=== PATIENT | male | born 1960 | race Hispanic/Latino ===

== ENCOUNTER 2019-02-09 18:52 | Emergency (ER) | payer SELFPAY ==
[2019-02-09] MEDS ORDERED: LIDOCAINE 2% MPF 5 ML VIAL ONE (19:03)
[2019-02-09] MEDS ORDERED: MORPHINE 4 MG/ML SYR ONE (19:23)
[2019-02-09] MEDS ORDERED: ONDANSETRON 4 MG/2 ML VIAL ONE (19:23)
[2019-02-09] MEDS ORDERED: TETANUS & DIPHTHERIA TOX,ADULT 0.5 ML VIAL ONE (19:23)
--- NOTE | 2019-02-09 20:08 | RAD REPORT ---
EXAM DESCRIPTION: RAD - Hand Right 3 View - 02/09/2019 7:37 pm CLINICAL HISTORY: Right hand pain status post injury FINDINGS: Comminuted fracture involves the third terminal tuft. No dislocation Laceration involves the soft tissues fourth terminal tuft
--- NOTE | 2019-02-09 21:20 | EDPHYS ---
Physician Documentation [facility] Name: Demetris Wong Age: 58 yrs Sex: Male : 1960 Arrival Date: 02/09/2019 Time: 18:57 Bed 20 Private MD: ED Physician Jcarlos Mendoza HPI: 02/09 19:08 This 58 yrs old Male presents to ER via Ambulatory with complaints of rn Laceration. 19:08 The patient or guardian reports injury, a laceration. The complaints affect the right rn 3rd/4th digits. Onset: The symptoms/episode began/occurred just prior to arrival. Modifying factors: The symptoms are alleviated by nothing, the symptoms are aggravated by nothing. Severity of symptoms: At their worst the symptoms were mild, in the emergency department the symptoms are unchanged. The patient has not experienced similar symptoms in the past. Reports clearing out grass in lawnmower, as blade was spinning, caught right hand. Mild pain. Unknown last tetanus. . Historical: - Allergies: 18:58 No Known Allergies; bp - Home Meds: 18:58 Unable to obtain [Active]; bp - PMHx: 18:58 Hypertension; bp - Immunization history:: Last tetanus immunization: unknown. - Social history:: Smoking status: Patient/guardian denies using tobacco. - Ebola Screening: : No symptoms or risks identified at this time. - Family history:: not pertinent. - Hospitalizations: : No recent hospitalization is reported. ROS: 19:08 Constitutional: Negative for fever, chills, and weight loss, MS/Extremity: + right rn 3rd/4th digits with laceration Exam: 19:08 Constitutional: This is a well developed, well nourished patient who is awake, alert, rn and in no acute distress. MS/ Extremity: Pulses equal, no cyanosis. Neurovascular intact. Full, normal range of motion. + right 3rd/4th digits with distal lacerations. 4th digit with 1.5 cm superficial laceration transverse distal phalanx, does not involve nail. 3rd digit with multiple longitudinal and transverse lacerations across distal phalanx, does involve nail bed, no bone expose on initial examination. Vital Signs: 18:58 Pulse 67; Resp 24; Temp 97.5; Pulse Ox 98% ; Weight 83.91 kg; bp 19:45 BP 168 / 89; Pulse 56; Resp 15 S; Pulse Ox 95% on R/A; cc3 20:15 BP 159 / 93; Pulse 52; Resp 15 S; Pulse Ox 97% on R/A; cc3 21:30 BP 170 / 96; Pulse 53; Resp 16 S; Pulse Ox 97% on R/A; cc3 22:00 BP 161 / 88; Pulse 56; Resp 15 S; Pulse Ox 97% on R/A; Pain 1/10; cc3 Procedures: 19:49 Nerve block: (digital) of palmar aspect of proximal phalanx of right ring finger and rn palmar aspect of proximal phalanx of right middle finger Medication: Lidocaine 2% without epinephrine, Amount: 5 mls were injected, Effect: the patient's symptoms are improved, Set up for procedure. Performed by Jcarlos Mendoza MD Patient tolerated well. Laceration: 21:14 Wound Repair of 2cm ( 0.8in ) subcutaneous laceration to palmar aspect of proximal rn phalanx of right ring finger. Distal neuro/vascular/tendon intact. Anesthesia: Digital block administered with 2 mls of 2% lidocaine. Wound prep: Extensive cleansing by me, Wound irrigation by me, Particulate matter removal of dirt of grass, Wound debrided moderately, Wound explored. Skin closed with 7 6-0 Prolene using interrupted sutures and sterile technique. Dressed with Kerlix. Patient tolerated well. 21:14 Wound Repair of 5cm ( 2.0in ) avulsed laceration to palmar aspect of proximal phalanx rn of right middle finger. Irregularly shaped.. Skin/tissue flap noted.. involving nail bed. Distal neuro/vascular/tendon intact. Anesthesia: Digital block administered with 3 mls of 2% lidocaine. Wound prep: Extensive cleansing by me, Wound irrigation by me, Particulate matter removal of dirt of grass by me, Wound margin revised moderately, Wound explored extensively, Copious irrigation. Skin closed with 16 6-0 Prolene using interrupted sutures and sterile technique. Dressed with surgicel. Patient tolerated well. MDM: 19:01 Patient medically screened. rn 19:14 ED course: Offered patient digital blocks while waiting on xrays and further rn examination, patient declines. . 21:14 Differential diagnosis: open fracture. Data reviewed: vital signs, nurses notes, rn radiologic studies, plain films, and as a result, I will discharge patient. Counseling: I had a detailed discussion with the patient and/or guardian regarding: the historical points, exam findings, and any diagnostic results supporting the discharge/admit diagnosis, radiology results, the need for outpatient follow up, to return to the emergency department if symptoms worsen or persist or if there are any questions or concerns that arise at home. Response to treatment: the patient's symptoms have markedly improved after treatment, and as a result, I will discharge patient. ED course: Wound closed after removal of nail, not salvageable, given abx and washed out well. Will dc home with abx and hand f/u. Return precautions given and understood. . 02/09 19:07 Order name: XRAY Hand RIGHT 3 View; Complete Time: 20:51 rn 02/09 19:07 Order name: IV Start; Complete Time: 19:19 rn Administered Medications: 19:25 Drug: Tetanus-Diphtheria Toxoid Adult 0.5 ml {Waterproof Material Folder: [employer]. Exp: cc3 09/30/2020. Lot #: [id number]. } Route: IM; Site: left deltoid; 19:30 Follow up: Response: No adverse reaction cc3 19:26 Drug: morphine 4 mg {Note: RASS 0.} Route: IVP; Site: left antecubital; cc3 20:00 Follow up: Response: No adverse reaction; Pain is decreased; RASS: Alert and Calm (0) cc3 19:30 Drug: Zofran 4 mg Route: IVP; Site: left antecubital; cc3 20:00 Follow up: Response: No adverse reaction; Nausea is decreased cc3 20:00 Drug: Lidocaine (1 %) 1 vials {Note: administered by Dr. Mendoza.} Volume: 5 ml; Route: cc3 Infiltration; Site: affected area; 20:10 Follow up: Response: No adverse reaction cc3 21:20 Drug: [place] 10 mg-325 mg 1 tabs {Note: RASS 0.} Route: PO; cc3 22:00 Follow up: Response: No adverse reaction; Pain is decreased; RASS: Alert and Calm (0) cc3 21:25 Drug: Ancef 2 grams Route: IVPB; Infused Over: 30 mins; Site: left antecubital; cc3 22:08 Follow up: Response: No adverse reaction; IV Status: Completed infusion; IV Intake: cc3 100ml Disposition: 02/09/19 21:19 Discharged to Home. Impression: Displaced fracture of distal phalanx of right middle finger, Superficial laceration of right distal ring finger. - Condition is Stable. - Discharge Instructions: Finger Fracture, Laceration Care, Adult, Nail Bed Laceration. - Prescriptions for Augmentin 875- 125 mg Oral Tablet - take 1 tablet by ORAL route every 12 hours for 10 days; 20 tablet. Tylenol- Codeine #3 300-30 mg Oral Tablet - take 2 tablets by ORAL route every 6-8 hours As needed; 20 tablet. Doxycycline Monohydrate 100 mg Oral Tablet - take 1 tablet by ORAL route every 12 hours for 10 days; 20 tablet. - Medication Reconciliation Form, Thank You Letter, Antibiotic Education, Prescription Opioid Use form. - Follow up: Melvin Keith MD; When: 2 - 3 days; Reason: Recheck today's complaints, Re-evaluation by your physician. - Problem is new. - Symptoms have improved. - Notes: Sutures to be removed in 14 days Signatures: Dispatcher [employer] EDMS Jcarlos Mendoza MD MD rn Peltier, Brian, RN RN bp Cordel, Charlene cc3 Corrections: (The following items were deleted from the chart) 22:08 21:19 02/09/2019 21:19 Discharged to Home. Impression: Displaced fracture of distal cc3 phalanx of right middle finger; Superficial laceration of right distal ring finger. Condition is Stable. Forms are Medication Reconciliation Form, Thank You Letter, Antibiotic Education, Prescription Opioid Use. Follow up: Melvin Keith; When: 2 - 3 days; Reason: Recheck today's complaints, Re-evaluation by your physician. Problem is new. Symptoms have improved. rn
--- NOTE | 2019-02-09 21:20 | ER ---
Nurse's Notes [facility] Name: Demetrsi Wong Age: 58 yrs Sex: Male : 1960 Arrival Date: 02/09/2019 Time: 18:57 Bed 20 Private MD: Diagnosis: Displaced fracture of distal phalanx of right middle finger;Superficial laceration of right distal ring finger Presentation: 02/09 18:57 Presenting complaint: Patient states: PARTIAL AMPUTATION TO R 3RD/4TH FINGERS BY ROTARY bp BLADE. Transition of care: patient was not received from another setting of care. Complicating Factors: Glass or an other foreign body is present in the wound. Onset of symptoms was February 09, 2019 at 18:30. Risk Assessment: Do you want to hurt yourself or someone else? Patient reports no desire to harm self or others. Initial Sepsis Screen: Does the patient meet any 2 criteria? No. Patient's initial sepsis screen is negative. Does the patient have a suspected source of infection? No. Patient's initial sepsis screen is negative. Care prior to arrival: None. 18:57 Method Of Arrival: Ambulatory bp 18:57 Acuity: GISEL 3 bp Triage Assessment: 19:29 General: Appears in no apparent distress. uncomfortable, Behavior is calm, cooperative, cc3 appropriate for age. Pain: Complains of pain in palmar aspect of proximal phalanx of right middle finger and palmar aspect of proximal phalanx of right ring finger. Injury Description: Laceration sustained to palmar aspect of proximal phalanx of right ring finger and palmar aspect of proximal phalanx of right middle finger is clean, superficial, 2.6 to 7.5 cm long, bleeding moderately. Historical: - Allergies: 18:58 No Known Allergies; bp - Home Meds: 18:58 Unable to obtain [Active]; bp - PMHx: 18:58 Hypertension; bp - Immunization history:: Last tetanus immunization: unknown. - Social history:: Smoking status: Patient/guardian denies using tobacco. - Ebola Screening: : No symptoms or risks identified at this time. - Family history:: not pertinent. - Hospitalizations: : No recent hospitalization is reported. Screenin:29 Abuse screen: Denies threats or abuse. Denies injuries from another. Nutritional cc3 screening: No deficits noted. Tuberculosis screening: No symptoms or risk factors identified. Fall Risk Ambulatory Aid- None/Bed Rest/Nurse Assist (0 pts). Gait- Normal/Bed Rest/Wheelchair (0 pts) Mental Status- Oriented to own ability (0 pts). Assessment: 19:29 General: Appears in no apparent distress. uncomfortable, Behavior is calm, cooperative, cc3 appropriate for age. Pain: Complains of pain in palmar aspect of proximal phalanx of right middle finger and palmar aspect of proximal phalanx of right ring finger. Neuro: Level of Consciousness is awake, alert, obeys commands, Oriented to person, place, time, situation, Appropriate for age. Cardiovascular: Denies chest pain, Capillary refill < 3 seconds Patient's skin is warm and dry. Respiratory: Airway is patent Respiratory effort is even, unlabored, Respiratory pattern is regular, symmetrical. GI: Abdomen is round non-distended. : No signs and/or symptoms were reported regarding the genitourinary system. EENT: No signs and/or symptoms were reported regarding the EENT system. Derm: Skin is intact, is healthy with good turgor, Skin is pink, warm \T\ dry. normal, Wound noted palmar aspect of proximal phalanx of right ring finger and palmar aspect of proximal phalanx of right middle finger Wound is laceration. Musculoskeletal: Circulation, motion, and sensation intact. Range of motion: limited in palmar aspect of proximal phalanx of right middle finger and palmar aspect of proximal phalanx of right ring finger. Injury Description: Laceration sustained to palmar aspect of proximal phalanx of right ring finger and palmar aspect of proximal phalanx of right middle finger is clean, superficial, 2.6 to 7.5 cm long, bleeding moderately. 20:10 Reassessment: Patient appears in no apparent distress at this time. Patient and/or cc3 family updated on plan of care and expected duration. Pain level reassessed. Patient is alert, oriented x 3, equal unlabored respirations, skin warm/dry/pink. Dr. Mendoza did wound suturing aseptically. Patient states feeling better. Patient states symptoms have improved. 21:15 Reassessment: Patient appears in no apparent distress at this time. Patient and/or cc3 family updated on plan of care and expected duration. Pain level reassessed. Patient is alert, oriented x 3, equal unlabored respirations, skin warm/dry/pink. 22:08 Reassessment: Patient appears in no apparent distress at this time. Patient and/or cc3 family updated on plan of care and expected duration. Pain level reassessed. Patient is alert, oriented x 3, equal unlabored respirations, skin warm/dry/pink. Wound cleaning and dressing done by in flight technician Kartik. IV antibiotic completed, Dr. Mendoza discharged the patient home with prescriptions given. IV cannula removed and patient left ER vitally stable and ambulatory by himself. No valuables left in the patient's room. Patient denies pain at this time. Patient states feeling better. Patient states symptoms have improved. Vital Signs: 18:58 Pulse 67; Resp 24; Temp 97.5; Pulse Ox 98% ; Weight 83.91 kg; bp 19:45 BP 168 / 89; Pulse 56; Resp 15 S; Pulse Ox 95% on R/A; cc3 20:15 BP 159 / 93; Pulse 52; Resp 15 S; Pulse Ox 97% on R/A; cc3 21:30 BP 170 / 96; Pulse 53; Resp 16 S; Pulse Ox 97% on R/A; cc3 22:00 BP 161 / 88; Pulse 56; Resp 15 S; Pulse Ox 97% on R/A; Pain 1/10; cc3 ED Course: 18:57 Patient arrived in ED. mr 18:58 Triage completed. bp 18:58 Arm band placed on left wrist. bp 18:59 Marce Lainez, BRIANNA is Primary Nurse. ch 19:01 Jcarlos Mendoza MD is Attending Physician. rn 19:18 Inserted saline lock: 20 gauge in left antecubital area, using aseptic technique. jd2 19:29 Jessica Mccoy is Primary Nurse. cc3 19:29 Patient has correct armband on for positive identification. Placed in gown. Bed in low cc3 position. Call light in reach. Side rails up X 1. Pulse ox on. NIBP on. 19:39 XRAY Hand RIGHT 3 View In Process Unspecified. EDMS 20:10 Assist provider with laceration repair on palmar aspect of proximal phalanx of right cc3 middle finger and palmar aspect of proximal phalanx of right ring finger that was between 7.6 to 12.5 cm using sutures. Set up tray. Performed by Jcarlos Mendoza MD Dressed with 4X4s, Patient tolerated well. 21:17 Melvin Keith MD is Referral Physician. rn 22:08 IV discontinued, intact, bleeding controlled, No redness/swelling at site. Pressure cc3 dressing applied. Administered Medications: 19:25 Drug: Tetanus-Diphtheria Toxoid Adult 0.5 ml {Supervisor Heavy Equipment: [employer]. Exp: cc3 09/30/2020. Lot #: [id number]. } Route: IM; Site: left deltoid; 19:30 Follow up: Response: No adverse reaction cc3 19:26 Drug: morphine 4 mg {Note: RASS 0.} Route: IVP; Site: left antecubital; cc3 20:00 Follow up: Response: No adverse reaction; Pain is decreased; RASS: Alert and Calm (0) cc3 19:30 Drug: Zofran 4 mg Route: IVP; Site: left antecubital; cc3 20:00 Follow up: Response: No adverse reaction; Nausea is decreased cc3 20:00 Drug: Lidocaine (1 %) 1 vials {Note: administered by Dr. Mendoza.} Volume: 5 ml; Route: cc3 Infiltration; Site: affected area; 20:10 Follow up: Response: No adverse reaction cc3 21:20 Drug: [place] 10 mg-325 mg 1 tabs {Note: RASS 0.} Route: PO; cc3 22:00 Follow up: Response: No adverse reaction; Pain is decreased; RASS: Alert and Calm (0) cc3 21:25 Drug: Ancef 2 grams Route: IVPB; Infused Over: 30 mins; Site: left antecubital; cc3 22:08 Follow up: Response: No adverse reaction; IV Status: Completed infusion; IV Intake: cc3 100ml Intake: 22:08 IV: 100ml; Total: 100ml. cc3 Outcome: 21:19 Discharge ordered by . rn 22:08 Patient left the ED. cc3 22:08 Discharged to home ambulatory. cc3 22:08 Condition: stable 22:08 Discharge instructions given to patient, Instructed on discharge instructions, follow up and referral plans. medication usage, wound care, Demonstrated understanding of instructions, follow-up care, medications, wound care, Prescriptions given X 3. Signatures: Dispatcher [employer] EDMS Marce Lainez, RN RN Brii WeldonJcarlos alvarez MD MD rn Donley, Jonika jd2 Peltier, Brian, Jessica Koehler RN cc3 Corrections: (The following items were deleted from the chart) 02/10 01:15 02/09 22:10 Reassessment: Patient appears in no apparent distress at this time. Patient cc3 and/or family updated on plan of care and expected duration. Pain level reassessed. Patient is alert, oriented x 3, equal unlabored respirations, skin warm/dry/pink. IV antibiotic completed, Dr. Mendoza discharged the patient home with prescriptions given. IV cannula removed and patient left ER vitally stable and ambulatory by himself. No valuables left in the patient's room. Patient denies pain at this time. Patient states feeling better. Patient states symptoms have improved. cc3
[2019-02-09] MEDS ORDERED: CEFAZOLIN SODIUM 1 GM/VIAL ONE (21:24)
[2019-02-09] MEDS ORDERED: NA CHLORIDE 0.9% 100 ML IV ONE (21:25)
[2019-02-09] MEDS ORDERED: HYDROCODONE/APAP 10/325 TAB ONE (21:25)
[2019-02-09 23:09] VITALS: TEMP 97.5
[2019-02-09 23:11] VITALS: O2SAT 97
[2019-02-09 23:13] VITALS: BP 170/96
== END 2019-02-09 22:08 | disposition home or self-care (01) ==
LOC: ER 18:52
PROC: 0JQJ0ZZ Repair Right Hand Subcutaneous Tissue and Fascia, Open Approach (ICD-10-PCS; principal; 2019-02-09)
DX: S61.214A Laceration without foreign body of right ring finger without damage to nail, initial encounter (principal); S62.632A Displaced fracture of distal phalanx of right middle finger, initial encounter for closed fracture; W31.89XA Contact with other specified machinery, initial encounter; Y93.89 Activity, other specified; Y92.9 Unspecified place or not applicable; Z23 Encounter for immunization; I10 Essential (primary) hypertension
CPT/HCPCS: 64450; 90471; 90714; 96365; 96375; 99284; J0690; J2405

== ENCOUNTER 2021-11-09 20:42 | Observation (INO) | payer SELFPAY ==
[2021-11-09 21:42] LABS: Absolute Lymphocytes (CBC) 2.6 K/uL (0.7-4.9); Hematocrit 44.2 % (39.6-49.0); Lymphocytes % 34.9 % (15.3-44.8); MPV 8.6 fL (7.6-11.3); RBC Red Blood Cell Count 5.11 M/uL (4.33-5.43)
[2021-11-09] MEDS ORDERED: NA CHLORIDE 0.9% 1,000 ML ONE (21:44)
[2021-11-09] MEDS ORDERED: ONDANSETRON 4 MG/2 ML VIAL ONE (21:44)
[2021-11-09] MEDS ORDERED: MORPHINE 4 MG/ML SYR ONE ×2 (21:44→23:03)
[2021-11-09 21:45] LABS: Protime INR 1.06
--- NOTE | 2021-11-09 21:56 | RAD REPORT ---
EXAM DESCRIPTION: RAD - Chest Single View - 11/09/2021 9:30 pm CLINICAL HISTORY: CHEST PAIN COMPARISON: CHEST SINGLE VIEW dated 01/26/2010; ABDOMEN ACUTE SERIES dated 06/21/2004; CHEST SINGLE VIEW dated 06/27/2003 FINDINGS: Lines: None. Lungs: No evidence of edema or pneumonia. Pleural: No significant pleural effusions or pneumothorax. Cardiac: The heart size is within normal limits. Bones: No acute fractures. Other: IMPRESSION: No acute cardiopulmonary disease.
--- NOTE | 2021-11-09 22:02 | RAD REPORT ---
EXAM DESCRIPTION: CT - Head Brain Wo Cont - 11/09/2021 9:50 pm CLINICAL HISTORY: Headache COMPARISON: No comparisons TECHNIQUE: All CT scans are performed using dose optimization technique as appropriate and may inclu de automated exposure control or mA/KV adjustment according to patient size. FINDINGS: No intracranial hemorrhage, hydrocephalus or extra-axial fluid collection.No areas of brai n edema or evidence of midline shift. The paranasal sinuses and mastoids are clear. The calvarium is intact. IMPRESSION: No acute intracranial abnormality.
[2021-11-09 22:08] LABS: Albumin 3.8 g/dL (3.4-5.0); Bilirubin Direct 0.1 mg/dL (0-0.2); Bilirubin Total 0.5 mg/dL (0.2-1.0); Magnesium 2.3 mg/dL (1.8-2.4); Potassium 3.8 mmol/L (3.5-5.1); Protein, Total 7.6 g/dL (6.4-8.2); Troponin High Sensitivity 8.5 pg/mL (<58.9)
--- NOTE | 2021-11-09 22:49 | EDPHYS ---
Physician Documentation [facility] Name: Demetris Wong Age: 61 yrs Sex: Male : 1960 Arrival Date: 11/09/2021 Time: 20:43 Bed 20 Private MD: ED Physician Landry Clark HPI: 11/09 20:53 This 61 yrs old Male presents to ER via EMS with complaints of Chest Pain. pm1 20:53 The patient or guardian reports chest pain that is located primarily in the anterior pm1 aspect of left upper chest and left breast. Onset: this morning. The pain does not radiate. Associated signs and symptoms: Pertinent positives: headache, nausea, shortness of breath, Pertinent negatives: abdominal pain, cough, diaphoresis, dizziness, vomiting. The chest pain is described as sharp. Duration: The patient or guardian reports a single episode, that is still ongoing. Modifying factors: The symptoms are alleviated by nothing. the symptoms are aggravated by nothing. Severity of pain: in the emergency department the pain is actually worse. EMS care prior to arrival includes: aspirin, saline lock. The patient has not experienced similar symptoms in the past. Historical: - Allergies: 20:55 No Known Allergies; ll3 - PMHx: 20:55 Hypertension; ll3 - Immunization history:: Client reports having NOT received the Covid vaccine. - Social history:: Smoking status: Patient denies any tobacco usage or history of. ROS: 20:53 Constitutional: Negative for fever, chills, and weight loss, Respiratory: Negative for pm1 shortness of breath, cough, wheezing, and pleuritic chest pain, Abdomen/GI: Negative for abdominal pain, nausea, vomiting, diarrhea, and constipation, Back: Negative for injury and pain, MS/Extremity: Negative for injury and deformity, Skin: Negative for injury, rash, and discoloration. 20:53 Neuro: Negative for headache, weakness, numbness, tingling, and seizure. 20:53 Cardiovascular: Positive for chest pain, of the left breast and anterior aspect of left upper chest, Negative for edema, palpitations. 20:53 All other systems are negative. Exam: 20:53 Constitutional: This is a well developed, well nourished patient who is awake, alert, pm1 and in no acute distress. Head/Face: Normocephalic, atraumatic. 20:53 Back: No spinal tenderness. No costovertebral tenderness. Full range of motion. Skin: Warm, dry with normal turgor. Normal color with no rashes, no lesions, and no evidence of cellulitis. MS/ Extremity: Pulses equal, no cyanosis. Neurovascular intact. Full, normal range of motion. 20:53 Chest/axilla: Inspection: normal, Palpation: tenderness, is not appreciated. 20:53 Cardiovascular: Rate: normal, Rhythm: regular, Pulses: no pulse deficits are appreciated, Heart sounds: normal, normal S1and S2, Edema: is not appreciated. 20:53 Respiratory: Exam negative for acute changes, respiratory distress, shortness of breath, Breath sounds: are clear throughout. 20:53 Abdomen/GI: Inspection: abdomen appears normal, Palpation: abdomen is soft and non-tender, in all quadrants. 20:53 Neuro: Exam negative for acute changes, Orientation: is normal, Mentation: is normal, Motor: is normal, moves all fours. Vital Signs: 20:49 BP 181 / 106; Pulse 70; Resp 17; Temp 98.0(TE); Pulse Ox 100% on R/A; Weight 77.11 kg ll3 (R); Height 5 ft. 7 in. (170.18 cm) (R); Pain 8/10; 22:26 BP 192 / 101; Pulse 66; Resp 22; Pulse Ox 98% on R/A; ll3 23:15 BP 168 / 96; Pulse 61; Resp 12; Pulse Ox 97% on R/A; ll3 11/10 01:16 BP 161 / 97; Pulse 58; Resp 18; Pulse Ox 99% on R/A; ll3 11/09 20:49 Body Mass Index 26.63 (77.11 kg, 170.18 cm) ll3 MDM: 11/09 20:43 Patient medically screened. [facility] 22:44 Data reviewed: vital signs. Data interpreted: Pulse oximetry: on room air is 98 %. pm1 Interpretation:. 22:48 Counseling: I had a detailed discussion with the patient and/or guardian regarding: the pm1 historical points, exam findings, and any diagnostic results supporting the discharge/admit diagnosis, lab results, radiology results, the need for further work-up and treatment in the hospital. 11/09 20:53 Order name: Basic Metabolic Panel; Complete Time: 22:21 pm11/09 20:53 Order name: CBC with Diff; Complete Time: 21:47 pm1 11/09 20:53 Order name: LFT's; Complete Time: 22:21 pm11/09 20:53 Order name: Magnesium; Complete Time: 22:21 pm11/09 20:53 Order name: NT PRO-BNP; Complete Time: 22:21 pm11/09 20:53 Order name: PT-INR; Complete Time: 21:47 pm11/09 20:53 Order name: Troponin HS; Complete Time: 22:21 pm11/09 20:53 Order name: XRAY Chest (1 view); Complete Time: 22:21 pm11/09 20:53 Order name: CT Head Brain wo Cont; Complete Time: 22:21 pm11/09 22:47 Order name: UDS pm11/09 23:03 Order name: COVID-19 SARS RT PCR (Document "Date of Onset" if Symptomatic) ks11/10 00:56 Order name: SARS-COV-2 RT PCR; Complete Time: 01:40 EDMS 11/09 20:53 Order name: EKG; Complete Time: 20:53 pm11/09 20:53 Order name: Cardiac monitoring; Complete Time: 20:58 pm11/09 20:53 Order name: EKG - Nurse/Tech; Complete Time: 21:28 pm11/09 20:53 Order name: IV Saline Lock; Complete Time: 21:18 pm11/09 20:53 Order name: Labs collected and sent; Complete Time: 21:18 pm11/09 20:53 Order name: O2 Per Protocol; Complete Time: 20:58 pm11/09 20:53 Order name: O2 Sat Monitoring; Complete Time: 20:58 pm1 Administered Medications: 21:40 Drug: Zofran (Ondansetron) 4 mg Route: IVP; Site: right antecubital; ll3 21:44 Drug: morphine 4 mg Route: IVP; Infused Over: 4 mins; Site: right antecubital; ll3 21:47 Not Given (Patient given in route by EMS): Aspirin Chewable Tablet 324 mg PO once; 81 pm1 mg tablets x 4 22:08 Drug: NS 0.9% 1000 ml Route: IV; Rate: 1000 ml; Site: left antecubital; ll3 22:45 CANCELLED (Physician Discretion): Lopressor (metoprolol) 5 mg IVP once; Hold for SBP pm1 <100 or HR <60. 22:46 CANCELLED (Physician Discretion): hydrALAZINE 10 mg IVP once pm1 23:00 Drug: Lisinopril 20 mg Route: PO; ll3 23:07 Drug: Nitrostat (nitroglycerin) 0.4 mg Route: Sublingual; ll3 23:11 Drug: morphine 4 mg Route: IVP; Infused Over: 4 mins; Site: left antecubital; ll3 Disposition Summary: 11/09/21 22:49 Hospitalization Ordered Hospitalization Status: Observation pm1 Provider: Yohannes Mendoza pm1 Location: Telemetry/MedSurg (observation) pm1 Condition: Stable pm1 Problem: new pm1 Symptoms: have improved pm1 Bed/Room Type: Standard 1 Room Assignment: [facility](11/10/21 00:57) Diagnosis - Chest pain, unspecified pm1 Forms: - Medication Reconciliation Form pm1 - SBAR form pm1 Signatures: Dispatcher [employer] EDMS Landry Clark MD MD cha Garcia, Cindy, RN RN Zohaib Baeza NP [employer] TECHNICIAN pm1 Clinton Coelho RN RN ll3 Corrections: (The following items were deleted from the chart) 22:45 22:43 Lopressor (metoprolol) 5 mg IVP once; Hold for SBP <100 or HR <60. ordered. pm1 pm1 22:46 22:45 hydrALAZINE 10 mg IVP once ordered. pm1 pm1 11/10 00:57 11/09 22:49 pm1 cg
--- NOTE | 2021-11-09 22:49 | ER ---
Nurse's Notes [facility] Name: Demetris Wong Age: 61 yrs Sex: Male : 1960 Arrival Date: 11/09/2021 Time: 20:43 Bed 20 Private MD: Diagnosis: Chest pain, unspecified Presentation: 11/09 20:49 Chief complaint: EMS states: Toned out for chest pain, SOB, H/A, and nausea, pt states ll3 it started about 2 hours ago after sweating in the sun all day, "I over did it today, I know I did", pt states he forgot to katie BP meds today. Coronavirus screen: Vaccine status: Patient reports being unvaccinated. Ebola Screen: No symptoms or risks identified at this time. Initial Sepsis Screen: Does the patient meet any 2 criteria? No. Patient's initial sepsis screen is negative. Does the patient have a suspected source of infection? No. Patient's initial sepsis screen is negative. Risk Assessment: Do you want to hurt yourself or someone else? Patient reports no desire to harm self or others. Onset of symptoms was November 09, 2021 at 19:00. Care prior to arrival: Medication(s) given: ASA, 81 mg, x 4, IV initiated. 20 GA, in the left antecubital area. 20:49 Method Of Arrival: EMS: [facility] ll3 20:49 Acuity: GISEL 3 ll3 Triage Assessment: 20:55 General: Appears uncomfortable, Behavior is calm, cooperative. Pain: Complains of pain ll3 in chest, H/A. Neuro: Level of Consciousness is awake, alert, obeys commands, Oriented to person, place, time, situation, Reports headache. Cardiovascular: Patient's skin is warm and dry. Chest pain quality is heaviness, is located in anterior chest wall radiates to left back began 2 hours prior to arrival episodes are continuous. Respiratory: Respiratory effort is even, unlabored, Respiratory pattern is regular, symmetrical. GI: Reports nausea. Derm: Skin is pink, warm \\T\\ dry. Historical: - Allergies: 20:55 No Known Allergies; ll3 - PMHx: 20:55 Hypertension; ll3 - Immunization history:: Client reports having NOT received the Covid vaccine. - Social history:: Smoking status: Patient denies any tobacco usage or history of. Screenin:41 Abuse screen: Denies threats or abuse. Nutritional screening: No deficits noted. ll3 Tuberculosis screening: No symptoms or risk factors identified. Fall Risk No fall in past 12 months (0 pts). No secondary diagnosis (0 pts). IV access (20 points). Ambulatory Aid- None/Bed Rest/Nurse Assist (0 pts). Gait- Normal/Bed Rest/Wheelchair (0 pts) Mental Status- Oriented to own ability (0 pts). Total Perez Fall Scale indicates No Risk (0-24 pts). Assessment: 20:57 General: See triage assessment. ll3 22:00 Reassessment: No changes from previously documented assessment. Patient and/or family ll3 updated on plan of care and expected duration. Pain level reassessed. Patient is alert, oriented x 3, equal unlabored respirations, skin warm/dry/pink. 23:40 Reassessment: No changes from previously documented assessment. Patient and/or family ll3 updated on plan of care and expected duration. Pain level reassessed. Patient is alert, oriented x 3, equal unlabored respirations, skin warm/dry/pink. 11/10 00:30 Reassessment: No changes from previously documented assessment. Patient and/or family ll3 updated on plan of care and expected duration. Pain level reassessed. Patient is alert, oriented x 3, equal unlabored respirations, skin warm/dry/pink. 01:16 Reassessment: No changes from previously documented assessment. Patient and/or family ll3 updated on plan of care and expected duration. Pain level reassessed. Patient is alert, oriented x 3, equal unlabored respirations, skin warm/dry/pink. Vital Signs: 11/09 20:49 BP 181 / 106; Pulse 70; Resp 17; Temp 98.0(TE); Pulse Ox 100% on R/A; Weight 77.11 kg ll3 (R); Height 5 ft. 7 in. (170.18 cm) (R); Pain 8/10; 22:26 BP 192 / 101; Pulse 66; Resp 22; Pulse Ox 98% on R/A; ll3 23:15 BP 168 / 96; Pulse 61; Resp 12; Pulse Ox 97% on R/A; ll3 11/10 01:16 BP 161 / 97; Pulse 58; Resp 18; Pulse Ox 99% on R/A; ll3 11/09 20:49 Body Mass Index 26.63 (77.11 kg, 170.18 cm) ll3 ED Course: 11/09 20:43 Patient arrived in ED. ll3 20:43 Zohaib Kraus NP is PHCP. pm1 20:43 Landry Clark MD is Attending Physician. pm1 20:55 Triage completed. ll3 20:55 Arm band placed on Patient placed in an exam room, on a stretcher, on ror engineer, ll3 on pulse oximetry. 21:32 XRAY Chest (1 view) In Process Unspecified. EDMS 21:52 CT Head Brain wo Cont In Process Unspecified. EDMS 22:49 Yohannes Mendoza MD is Hospitalizing Provider. pm1 23:10 Clinton Coelho RN is Primary Nurse. ll3 23:41 Patient has correct armband on for positive identification. Bed in low position. Call 3 light in reach. Side rails up X 1. 11/10 01:16 No provider procedures requiring assistance completed. Patient admitted, IV remains in ll3 place. Administered Medications: 11/09 21:40 Drug: Zofran (Ondansetron) 4 mg Route: IVP; Site: right antecubital; ll3 21:44 Drug: morphine 4 mg Route: IVP; Infused Over: 4 mins; Site: right antecubital; ll3 21:47 Not Given (Patient given in route by EMS): Aspirin Chewable Tablet 324 mg PO once; 81 pm1 mg tablets x 4 22:08 Drug: NS 0.9% 1000 ml Route: IV; Rate: 1000 ml; Site: left antecubital; ll3 22:45 CANCELLED (Physician Discretion): Lopressor (metoprolol) 5 mg IVP once; Hold for SBP pm1 <100 or HR <60. 22:46 CANCELLED (Physician Discretion): hydrALAZINE 10 mg IVP once pm1 23:00 Drug: Lisinopril 20 mg Route: PO; ll3 23:07 Drug: Nitrostat (nitroglycerin) 0.4 mg Route: Sublingual; ll3 23:11 Drug: morphine 4 mg Route: IVP; Infused Over: 4 mins; Site: left antecubital; ll3 Medication: 23:41 VIS not applicable for this client. ll3 Outcome: 22:49 Decision to Hospitalize by Provider. pm1 11/10 01:16 Admitted to Med/surg accompanied by tech, via wheelchair, room 207, on monitor, with ll3 chart, Report called to BRIANNA Melgar Condition: stable Discharge instructions given to patient, Instructed on the need for admit, Demonstrated understanding of instructions. 01:18 Patient left the ED. ll3 Signatures: Dispatcher [employer] EDZohaib Blood, RONAK JEWELRY TECHNICIAN pm1 Clinton Coelho, RN RN ll3
[2021-11-09] MEDS ORDERED: lisinopriL 20 MG TAB ONE (23:01)
--- NOTE | 2021-11-09 23:01 | P.HP ---
Certification for Inpatient Patient admitted to: Observation With expected LOS: <2 Midnights Patient will require the following post-hospital care: None Practitioner: I am a practitioner with admitting privileges, knowledge of patient current condition, hospital course, and medical plan of care. Services: Services provided to patient in accordance with Admission requirements found in Title 42 Section 412.3 of the Code of Federal Regulations Patient History Date of Service: 11/09/21 Reason for admission: Chest pain History of Present Illness: 61-year-old male history of hypertension presents emergency department for chest pain, malaise. Reports that he was mowing a very large yard when he felt as if he is getting heat exhaustion, shortly after mow the yard while driving to relatives house began having some chest pain described as pressure-like nonradiating associated with nausea and generalized weakness. Patient was pulled over and arrested, during his stay in the local intermediate he continued to complain about chest pain he was transferred by EMS to the ER his initial troponin was negative EKG without ST elevations chest x-ray was unremarkable his blood pressure remained elevated did not take his blood pressure medicine today. He has not ever had any previous cardiac evaluation. ED provider wishes to admit for ACS rule out. - Past Medical/Surgical History -: Hypertension -: Back surgery -: Shoulder surgery Psychosocial/ Personal History: Lives at home with family - Family History Father -: Heart disease, Diabetes Mother -: Heart disease, Diabetes Brother -: Heart disease - Social History Smoking Status: Never smoker Alcohol use: No CD- Drugs: No Caffeine use: Yes Place of Residence: Home Review of Systems 10-point ROS is otherwise unremarkable General: Weakness Respiratory: Shortness of Breath Cardiovascular: Chest Pain Physical Examination - Physical Exam General: Alert, In no apparent distress, Oriented x3 HEENT: Atraumatic, PERRLA, Mucous membr. moist/pink, EOMI, Sclerae nonicteric Neck: Supple, 2+ carotid pulse no bruit, No LAD, Without JVD or thyroid abnormality Respiratory: Clear to auscultation bilaterally, Normal air movement Cardiovascular: Regular rate/rhythm, Normal S1 S2 Gastrointestinal: Normal bowel sounds, No tenderness Musculoskeletal: No tenderness Integumentary: No rashes Neurological: Normal speech, Normal strength at 5/5 x4 extr, Normal tone, Normal affect - Studies Laboratory Data (last 24 hrs) 11/09/21 21:20: PT 11.7, INR 1.06 11/09/21 21:20: WBC 7.4, Hgb 15.0, Hct 44.2, Plt Count 208 11/09/21 21:20: Sodium 135 L, Potassium 3.8, BUN 7, Creatinine 0.84, Glucose 91, Magnesium 2.3, Total Bilirubin 0.5, AST 19, ALT 24, Alkaline Phosphatase 76 Assessment and Plan - Plan Assessment: Chest pain rule out ACS Hypertension Plan: Chest pain rule out ACS: Trend troponins, monitor on telemetry, cardiology consult aspirin, statin, beta-rafaela therapy continue lisinopril. As needed morphine/nitroglycerin for pain. Appreciate further input from cardiology. Hypertension: Continue lisinopril 20mg daily, add metoprolol 25 bid increase as needed. DVT PPX:lovenox Code status:Full Discharge Plan: Home Plan to discharge in: 24 Hours - Advance Directives Does patient have a Living Will: No Does patient have a Durable POA for Healthcare: No - Code Status/Comfort Care Code Status Assessed: Yes (full) Time Spent Managing Pts Care (In Minutes): 70
[2021-11-09] MEDS ORDERED: NITROGLYCERIN 0.4 MG/TAB SL ONE (23:03)
[2021-11-10] MEDS ORDERED: MORPHINE 2 MG/ML SYR IV PRN (01:27)
[2021-11-10] MEDS ORDERED: ONDANSETRON 4 MG/2 ML VIAL IV PRN (01:27)
[2021-11-10] MEDS ORDERED: NITROGLYCERIN 0.4 MG/TAB SL PRN (01:27)
[2021-11-10 01:36] VITALS: BMI 26.6
[2021-11-10 01:46] VITALS: O2SAT 100
[2021-11-10] MEDS ORDERED: METOPROLOL TAR 25 MG TAB PO SCH (06:00)
[2021-11-10 07:10] LABS: Hematocrit 40.9 % (39.6-49.0); Lymphocytes % 32.7 % (15.3-44.8); MPV 8.7 fL (7.6-11.3); RBC Red Blood Cell Count 4.71 M/uL (4.33-5.43)
[2021-11-10 07:38] LABS: Albumin 3.1 g/dL (3.4-5.0); Bilirubin Total 0.3 mg/dL (0.2-1.0); Potassium 3.6 mmol/L (3.5-5.1); Protein, Total 6.3 g/dL (6.4-8.2)
[2021-11-10] MEDS ORDERED: lisinopriL 20 MG TAB PO SCH (09:00)
[2021-11-10] MEDS ORDERED: ENOXAPARIN 40 MG/0.4 ML SQ SCH (09:00)
[2021-11-10] MEDS ORDERED: ASPIRIN EC 81 MG TAB PO SCH (09:00)
[2021-11-10] MEDS ORDERED: POTASSIUM 25 MEQ EFFERV TAB PO ONE (12:00)
[2021-11-10 13:00] LABS: Urine Appearance CLEAR (Clear); Urine Bilirubin NEGATIVE (Negative); Urine Blood NEGATIVE (Negative); Urine Color YELLOW (Yellow); Urine Glucose NEGATIVE (Negative); Urine Microscopic Reflex NO UMIC; Urine Protein NEGATIVE (Negative); Urine Specific Gravity 1.025 (1.005-1.030)
[2021-11-10 13:54] VITALS: BP 124/64; TEMP 97.1
--- NOTE | 2021-11-10 14:00 | P.DS ---
Admission Date: 11/09/21 Discharge Date: 11/10/21 Disposition: ROUTINE DISCHARGE Discharge Condition: GOOD Reason for Admission: Chest pain Consultations: Cardiology - Dr. Chew Brief History of Present Illness: 61yo M, PMH: HTN Presented to ED for chest pain and malaise. He was mowing a very large yard when he felt as if he was getting heat exhaustion. Shortly after, he was drivign to his relatives house and began to have pressure-like chest pain that was non- radiation, associated with nausea/weakness. Patient was pulled over and arrested. During his stay in local snf, he continued to complain about chest pain and he was transferred to the ED via EMS. Initial troponin, EKG, and chest x-ray were unremarkable. His blood pressure was elevated and he reported not taking his medication. ED physician requested admission for ACS rule out. Hospital Course: Problem List Chest pain Heat exhaustion HTN Patient's chest pain was evaluated by EKG, chest x-ray, troponins, which were all normal/negative. Cardiology was consulted. Patient had improvement of his chest discomfort and blood pressure. Suspect this was secondary to heat exhaustion and high blood pressure. Patient missed his blood pressure medication. Cardiology recommended follow up in their office this coming Saturday, plan for outpatient cardiac stress testing. He was deemed stable for discharge home, no changes in medications. Vital Signs/Physical Exam: Temp Pulse Resp BP Pulse Ox 97.1 F 52 12 124/64 100 11/10/21 12:00 11/10/21 12:00 11/10/21 12:00 11/10/21 12:00 11/10/21 12:00 General: Alert, In no apparent distress HEENT: EOMI, Sclerae nonicteric Respiratory: Clear to auscultation bilaterally, Normal air movement Cardiovascular: No edema, Regular rate/rhythm Gastrointestinal: Soft and benign, Non-distended, No tenderness Musculoskeletal: No erythema, No tenderness Integumentary: No rashes, No significant lesion Neurological: Normal speech, Normal affect Laboratory Data at Discharge: WBC 6.0 K/uL (4.3-10.9) D 11/10/21 06:23 Hgb 13.8 g/dL (13.6-17.9) 11/10/21 06:23 Hct 40.9 % (39.6-49.0) 11/10/21 06:23 Plt Count 195 K/uL (152-406) 11/10/21 06:23 PT 11.7 SECONDS (9.5-12.5) 11/09/21 21:20 INR 1.06 11/09/21 21:20 Sodium 138 mmol/L (136-145) 11/10/21 06:23 Potassium 3.6 mmol/L (3.5-5.1) 11/10/21 06:23 BUN 12 mg/dL (7-18) 11/10/21 06:23 Creatinine 0.87 mg/dL (0.55-1.3) 11/10/21 06:23 Glucose 121 mg/dL (74-106) H 11/10/21 06:23 Magnesium 2.3 mg/dL (1.8-2.4) 11/09/21 21:20 Total Bilirubin 0.3 mg/dL (0.2-1.0) 11/10/21 06:23 AST 17 U/L (15-37) 11/10/21 06:23 ALT 20 U/L (12-78) 11/10/21 06:23 Alkaline Phosphatase 72 U/L (45-117) 11/10/21 06:23 Triglycerides 120 mg/dL (<150) 11/10/21 06:23 Cholesterol 133 mg/dL (<200) 11/10/21 06:23 HDL Cholesterol 48 mg/dL (40-60) 11/10/21 06:23 Cholesterol/HDL Ratio 2.77 11/10/21 06:23 Home Medications: Lisinopril [Zestril] 20 mg PO DAILY 11/10/21 Physician Discharge Instructions: Patient's chest pain was evaluated by EKG, chest x-ray, troponins, which were all normal/negative. Cardiology was consulted. Patient had improvement of his chest discomfort and blood pressure. Suspect this was secondary to heat exhaustion and high blood pressure. Patient missed his blood pressure medication. Cardiology recommended follow up in their office this coming Saturday, plan for outpatient cardiac stress testing. He was deemed stable for discharge home, no changes in medications. Diet: Regular Activity: Ad sanna Time spent managing pt's care (in minutes): 40
[2021-11-10] MEDS ORDERED: ATORVASTATIN 40 MG TAB PO SCH (21:00)
--- NOTE | 2021-11-11 17:32 | EKG ---
Test Date: 2021-11-09 Test Time: 21:22:29 Social Sciences Lecturer: ANGIE MEASUREMENT RESULTS: Intervals: Rate: 62 LA: 144 QRSD: 82 QT: 440 QTc: 446 [place]: P: 59 LA: 144 QRS: 30 T: 59 INTERPRETIVE STATEMENTS: Normal sinus rhythm Normal ECG Compared to ECG 09/05/2010 15:24:54 No significant changes Electronically Signed On 11-11-21 17:29:12 CDT by Ronak Chew
--- NOTE | 2021-11-11 20:55 | CON ---
Date of Consultation: 11/10/2021 Reason For Consultation: Chest pain. History Of Present Illness: 61-year-old male presented to the emergency room with chest pain, claime d that after mowing a large yard in the heat, he felt nauseated, had some chest discomfort, generaliz ed dizziness and weakness. Emergency room evaluation showed that his initial troponin was negative. An EKG was negative. At the time of my evaluation, patient was completely symptoms free. Denies tenorio ving any other complaints. Past Medical History: Hypertension. Medications: Refer reconciliation sheet for detailed list. Past Surgical History: Back surgery and shoulder surgery. Allergies: NO KNOWN DRUG ALLERGIES. Family History: No premature coronary artery disease or cancer. Social History: Does not smoke or drink. Does not use any drugs. Review of Systems: All systems reviewed and they were negative except as mentioned in the HPI. Physical Examination: Vital Signs: Reviewed. Head and Neck: Pupils are equal, reactive to light. Intact eye movements. No JVD. No cervical lym phadenopathy. Neck is supple. Thyroid is not enlarged. Lungs: Clear to auscultation bilaterally. No rhonchi, rales, or crackles. No accessory muscle use. Heart: Regular rate and rhythm. No extra sounds. Abdomen: Soft, nontender. Bowel sounds positive. No organomegaly. No masses or hernia. No rigidi ty or rebound. Extremities: No clubbing or cyanosis. Intact pulses. Skin: No rash. Neurologic: Alert, awake, and oriented x3. No acute focal deficit is appreciated Investigations: Labs were reviewed. Troponins x3 are negative. Assessment And Recommendation: 1.Chest pain, is atypical and cardiac enzymes are negative. From Cardiology standpoint, patient can be released and follow up with me in the office and we will plan for exercise stress test and echo a s an outpatient. To take baby aspirin for now and to report any other chest pain episodes back to [facility] emergency room. 2.Dehydration from the heat exhaustion. High fluid management is recommended. 3.Hypertension. Blood pressure is controlled. Thank you for the consult. /LANEY Voice ID: [id number] Report ID: [id number]
== END 2021-11-10 16:20 | disposition home or self-care (01) ==
LOC: ER 20:42 → ERHOLD 22:53 → 2ND 11-10 01:06
PROVIDERS: ADMIT Hospitalist; ATTEND Hospitalist
DX: R07.9 Chest pain, unspecified (principal); T67.5XXA Heat exhaustion, unspecified, initial encounter; I10 Essential (primary) hypertension; R06.02 Shortness of breath; Z28.310 Unvaccinated for COVID-19; Z20.822 Contact with and (suspected) exposure to COVID-19; Z82.49 Family history of ischemic heart disease and other diseases of the circulatory system; Z83.3 Family history of diabetes mellitus
CPT/HCPCS: 36415; 70450; 71045; 80048; 80053; 80061; 80076; 81003; 82550; 83735; 83880; 84484; 85025; 85610; 93005; J1650; J2405; J7030; U0003

== ENCOUNTER 2022-01-18 03:30 | Emergency (ER) | payer SELFPAY ==
[2022-01-18] MEDS ORDERED: MORPHINE 4 MG/ML SYR ONE (03:58)
[2022-01-18] MEDS ORDERED: FAMOTIDINE 20 MG/2 ML VIAL IV ONE (03:58)
[2022-01-18] MEDS ORDERED: ONDANSETRON 4 MG/2 ML VIAL ONE (03:58)
[2022-01-18 04:17] LABS: Hematocrit 43.3 % (39.6-49.0); Lymphocytes % 24.7 % (15.3-44.8); MCV 87.6 fL (80-100); MPV 8.6 fL (7.6-11.3); RBC Red Blood Cell Count 4.94 M/uL (4.33-5.43)
[2022-01-18 04:32] LABS: Albumin 3.3 g/dL (3.4-5.0); Bilirubin Total 0.4 mg/dL (0.2-1.0); Potassium 3.5 mmol/L (3.5-5.1)
--- NOTE | 2022-01-18 05:52 | EDPHYS ---
Physician Documentation [facility] Name: Demetris Wong Age: 61 yrs Sex: Male : 1960 Arrival Date: 01/18/2022 Time: 03:31 Bed 4 Private MD: ED Physician Jcarlos Mendoza HPI: 01/18 04:06 This 61 yrs old Male presents to ER via Ambulatory with complaints of rn Abdominal Pain, Nausea. 04:06 The patient presents to the emergency department with nausea, abdominal pain, of the rn epigastric area. Onset: The symptoms/episode began/occurred last night. Possible causes: unknown. The symptoms are aggravated by nothing. The symptoms are alleviated by nothing. Associated signs and symptoms: Pertinent positives: abdominal pain, nausea, Pertinent negatives: fever, GI bleeding. Severity of symptoms: At their worst the symptoms were moderate in the emergency department the symptoms are unchanged. The patient has not experienced similar symptoms in the past. The patient has not recently seen a physician. Pt reports daily drinker, no known hx of pancreatitis. . Historical: - Allergies: 03:48 No Known Allergies; lg3 - Home Meds: 03:48 lisinopril 20 mg Oral tab 1 tab once daily [Active]; lg3 - PMHx: 03:48 Hypertension; lg3 - PSHx: 03:48 left shoulder; lg3 - Immunization history:: Adult Immunizations up to date, Client reports having NOT received the Covid vaccine. - Social history:: Smoking status: Patient reports the use of cigarette tobacco products, denies chronic smoking, but will smoke occasionally, Patient uses alcohol, on a daily basis. claims drinking about a 6 pack/day. - Family history:: not pertinent. - Hospitalizations: : No recent hospitalization is reported. ROS: 04:06 Constitutional: Negative for fever, chills, and weight loss, Eyes: Negative for injury, rn pain, redness, and discharge, Neck: Negative for injury, pain, and swelling, Cardiovascular: Negative for chest pain, palpitations, and edema, Respiratory: Negative for shortness of breath, cough, wheezing, and pleuritic chest pain, Abdomen/GI: + abd pain and nausea Back: Negative for injury and pain, : Negative for injury, bleeding, discharge, and swelling, MS/Extremity: Negative for injury and deformity, Skin: Negative for injury, rash, and discoloration, Neuro: Negative for headache, weakness, numbness, tingling, and seizure. Exam: 04:06 Constitutional: This is a well developed, well nourished patient who is awake, alert, rn and in no acute distress. Head/Face: Normocephalic, atraumatic. Eyes: Periorbital areas with no swelling, redness, or edema. Cardiovascular: Regular rate and rhythm. No pulse deficits. Respiratory: No increased work of breathing, no retractions or nasal flaring. Abdomen/GI: soft, + epigastric tenderness, neg lyman Skin: Warm, dry MS/ Extremity: Pulses equal, no cyanosis. Neuro: Awake and alert, GCS 15 Vital Signs: 03:46 BP 169 / 105; Pulse 61; Resp 18 S; Temp 97.7(O); Pulse Ox 99% on R/A; Weight 77.11 kg lg3 (R); Height 5 ft. 7 in. (170.18 cm) (R); Pain 10/10; 05:30 BP 154 / 89; Pulse 58; Pulse Ox 99% ; vc1 03:46 Body Mass Index 26.63 (77.11 kg, 170.18 cm) lg3 MDM: 03:39 Patient medically screened. rn 05:47 Differential diagnosis: Nonspecific abd pain, gastritis, cholecystitis, pancreatitis, rn viral gastroenteritis, gastroenteritis. Data reviewed: vital signs, nurses notes, lab test result(s), radiologic studies, CT scan, ultrasound, and as a result, I will discharge patient. Counseling: I had a detailed discussion with the patient and/or guardian regarding: the historical points, exam findings, and any diagnostic results supporting the discharge/admit diagnosis, lab results, radiology results, the need for outpatient follow up, to return to the emergency department if symptoms worsen or persist or if there are any questions or concerns that arise at home. Response to treatment: the patient's symptoms have markedly improved after treatment, and as a result, I will discharge patient. Special discussion: I discussed with the patient/guardian in detail that at this point there is no indication for admission to the hospital. It is understood, however, that if the symptoms persist or worsen the patient needs to return immediately for re-evaluation. Based on the history and exam findings, there is no indication for further emergent testing or inpatient evaluation. I discussed with the patient/guardian the need to see the anesthesiology medical doctor for further evaluation of the symptoms. I discussed with the patient/guardian the need to see the primary care provider for further evaluation of the symptoms. ED course: NO acute findings on CT abdomen or u/s. Most likely alcohol related gastritis. Normal h/h. Sleeping comfortably. Will dc home with antacids and urge to slowly quit drinking. . 01/18 03:44 Order name: CBC with Diff; Complete Time: 04:33 rn 01/18 03:44 Order name: CMP; Complete Time: 04:33 rn 01/18 03:44 Order name: Lipase; Complete Time: 04:33 rn 01/18 03:44 Order name: Abdomen Limited US rn 01/18 03:44 Order name: CT Abd/Pelvis - IV Contrast Only rn 01/18 03:44 Order name: ETOH Level; Complete Time: 04:33 rn 01/18 03:44 Order name: IV Saline Lock; Complete Time: 04:01 rn 01/18 03:44 Order name: Labs collected and sent; Complete Time: 04:01 rn Administered Medications: 04:00 Drug: morphine 4 mg Route: IVP; Infused Over: 4 mins; Site: right forearm; aa9 06:16 Follow up: Response: No adverse reaction; Pain is decreased lg3 04:01 Drug: Pepcid (famotidine) 20 mg Route: IVP; Site: right forearm; aa9 06:16 Follow up: Response: No adverse reaction lg3 04:01 Drug: Zofran (Ondansetron) 4 mg Route: IVP; Site: right forearm; aa9 06:17 Follow up: Response: No adverse reaction lg3 Disposition Summary: 01/18/22 05:51 Discharge Ordered Location: Home rn Problem: new rn Symptoms: have improved rn Condition: Stable rn Diagnosis - Alcoholic gastritis without bleeding rn Followup: rn - With: Pete Wisdom MD - When: As needed - Reason: Recheck today's complaints, Re-evaluation by your physician Discharge Instructions: - Discharge Summary Sheet rn - Gastritis, Adult rn Forms: - Medication Reconciliation Form rn - Thank You Letter rn - Antibiotic rn geriatric - Prescription Opioid Use rn Prescriptions: - Protonix 40 mg Oral Tablet - take 1 tablet by ORAL route once daily; 30 tablet; Refills: 0, Product rn Selection Permitted Signatures: Dispatcher [employer] Jcarlos Horan MD MD rn Gibson, Lacie RN RN lg3 Ranjana Acevedo RN RN aa9
--- NOTE | 2022-01-18 05:52 | ER ---
Nurse's Notes [facility] Name: Demetris Wong Age: 61 yrs Sex: Male : 1960 Arrival Date: 01/18/2022 Time: 03:31 Bed 4 Private MD: Diagnosis: Alcoholic gastritis without bleeding Presentation: 01/18 03:46 Chief complaint: Patient states: epigastric pain and nausea starting yesterday and lg3 getting worse through the night. Coronavirus screen: Client denies travel out of the [place] in the last 14 days. At this time, the client does not indicate any symptoms associated with coronavirus-19. Ebola Screen: No symptoms or risks identified at this time. Initial Sepsis Screen: Does the patient meet any 2 criteria? No. Patient's initial sepsis screen is negative. Does the patient have a suspected source of infection? No. Patient's initial sepsis screen is negative. Risk Assessment: Do you want to hurt yourself or someone else? Patient reports no desire to harm self or others. Onset of symptoms was January 17, 2022. 03:46 Method Of Arrival: Ambulatory lg3 03:46 Acuity: GISEL 3 lg3 Triage Assessment: 03:48 General: Appears in no apparent distress. uncomfortable, Behavior is calm, cooperative. lg3 Pain: Complains of pain in epigastric area Pain does not radiate. Pain currently is 10 out of 10 on a pain scale. Quality of pain is described as heavy, pressure, squeezing, Noted to be grimacing, guarding, resistant to movement. EENT: No deficits noted. No signs and/or symptoms were reported regarding the EENT system. Neuro: No deficits noted. Level of Consciousness is awake, alert, obeys commands, Oriented to person, place, time, situation. Cardiovascular: No deficits noted. Denies chest pain, shortness of breath, Capillary refill < 3 seconds Clubbing of nail beds is absent JVD is absent Patient's skin is warm and dry. Respiratory: No deficits noted. Airway is patent Trachea midline Respiratory effort is even, unlabored, Respiratory pattern is regular, symmetrical, Breath sounds are clear bilaterally. GI: Abdomen is flat, non-distended, Bowel sounds present X 4 quads. Reports epigastric pain, nausea. : No deficits noted. No signs and/or symptoms were reported regarding the genitourinary system. Derm: No deficits noted. No signs and/or symptoms reported regarding the dermatologic system. Skin is intact, is healthy with good turgor, Skin is dry, Skin temperature is warm. Musculoskeletal: No deficits noted. No signs and/or symptoms reported regarding the musculoskeletal system. Circulation, motion, and sensation intact. Range of motion: intact in all extremities. Historical: - Allergies: 03:48 No Known Allergies; lg3 - Home Meds: 03:48 lisinopril 20 mg Oral tab 1 tab once daily [Active]; lg3 - PMHx: 03:48 Hypertension; lg3 - PSHx: 03:48 left shoulder; lg3 - Immunization history:: Adult Immunizations up to date, Client reports having NOT received the Covid vaccine. - Social history:: Smoking status: Patient reports the use of cigarette tobacco products, denies chronic smoking, but will smoke occasionally, Patient uses alcohol, on a daily basis. claims drinking about a 6 pack/day. - Family history:: not pertinent. - Hospitalizations: : No recent hospitalization is reported. Screenin:51 Abuse screen: Denies threats or abuse. Denies injuries from another. Nutritional lg3 screening: No deficits noted. Tuberculosis screening: No symptoms or risk factors identified. Fall Risk None identified. Assessment: 03:51 General: see triage assessment . lg3 05:21 Reassessment: Patient appears in no apparent distress at this time. No changes from lg3 previously documented assessment. Patient is alert, oriented x 3, equal unlabored respirations, skin warm/dry/pink. pt quietly resting at this time. 05:21 GI: Abd is soft X 4 quads Abdomen is tender to palpation in epigastric area. lg3 Vital Signs: 03:46 BP 169 / 105; Pulse 61; Resp 18 S; Temp 97.7(O); Pulse Ox 99% on R/A; Weight 77.11 kg lg3 (R); Height 5 ft. 7 in. (170.18 cm) (R); Pain 10/10; 05:30 BP 154 / 89; Pulse 58; Pulse Ox 99% ; vc1 03:46 Body Mass Index 26.63 (77.11 kg, 170.18 cm) lg3 ED Course: 03:31 Patient arrived in ED. ja2 03:39 Jcarlos Mendoza MD is Attending Physician. rn 03:46 Vika Levy, BRIANNA is Primary Nurse. lg3 03:48 Triage completed. lg3 03:48 Arm band placed on right wrist. lg3 03:51 Patient has correct armband on for positive identification. Bed in low position. Call lg3 light in reach. Side rails up X 1. Client placed on continuous cardiac and pulse oximetry monitoring. NIBP monitoring applied. Door closed. Noise minimized. Warm blanket given. 04:01 ETOH Level Sent. lg3 04:01 Initial lab(s) drawn, by tn, sent to lab. Inserted saline lock: 20 gauge in right wm antecubital area, using aseptic technique. Blood collected. 04:27 Abdomen Limited US In Process Unspecified. EDMS 05:05 CT Abd/Pelvis - IV Contrast Only In Process Unspecified. EDMS 05:51 Pete Wisdom MD is Referral Physician. rn 06:16 No provider procedures requiring assistance completed. IV discontinued, intact, lg3 bleeding controlled, No redness/swelling at site. Pressure dressing applied. Administered Medications: 04:00 Drug: morphine 4 mg Route: IVP; Infused Over: 4 mins; Site: right forearm; aa9 06:16 Follow up: Response: No adverse reaction; Pain is decreased lg3 04:01 Drug: Pepcid (famotidine) 20 mg Route: IVP; Site: right forearm; aa9 06:16 Follow up: Response: No adverse reaction lg3 04:01 Drug: Zofran (Ondansetron) 4 mg Route: IVP; Site: right forearm; aa9 06:17 Follow up: Response: No adverse reaction lg3 Medication: 06:16 VIS not applicable for this client. lg3 Outcome: 05:51 Discharge ordered by MD. rn 06:16 Discharged to home ambulatory. lg3 06:16 Condition: stable 06:16 Discharge instructions given to patient, Instructed on discharge instructions, follow up and referral plans. medication usage, Demonstrated understanding of instructions, follow-up care, medications, Prescriptions given X 1. 06:17 Patient left the ED. lg3 Signatures: Dispatcher [employer] EDMS Jcarlos Mendoza MD MD rn Gibson, Lacie, BRIANNA RN lg3 Maren Brown Lucita Mcgraw Vanessa, RN RN vc1 Jordan Acevedolin, RN RN aa9
[2022-01-18 07:48] VITALS: TEMP 97.7; O2SAT 99
[2022-01-18 07:50] VITALS: BP 154/89
--- NOTE | 2022-01-18 14:24 | RAD REPORT ---
EXAM DESCRIPTION: US - Abdomen Exam Limited - 01/18/2022 4:25 am CLINICAL HISTORY: 61 years Male ABD PAIN TECHNIQUE: Limited sonographic imaging of the right upper quadrant was performed on 01/18/2022 at 4: 1 6 AM. Comparison: None. FINDINGS: Sonographic imaging of the abdomen was performed to further evaluate the gallbladder. The gallbladder is well distended. There is no evidence of cholelithiasis or definite sludge. The gal lbladder wall measures approximately 3 mm in diameter. There is no pericholecystic fluid. No sonograp hic Valdez's sign was detected by the technologist. The common bile duct measures approximately 3 mm in diameter. Adjacent to the gallbladder within the right hepatic lobe is a sharply marginated anechoic mass with enhanced through transmission of sound most consistent with a simple cyst. This measures approximatel y 4.6 x 4.6 x 4.2 cm there is no evidence of internal or peripheral Doppler signal. IMPRESSION: 1. No evidence of cholelithiasis, pericholecystic fluid or biliary ductal dilatation. 2. Approximately 4.6 cm simple appearing cyst adjacent to the gallbladder within the right hepatic lobe. Electronically signed by: Shaneka Villela DO 01/18/2022 5:17 AM CDT Due to temporary technical issues with the PACS/Fluency reporting system, reports are being signed by the in house radiologists without review as a courtesy to insure prompt reporting. The interpreting radiologist is fully responsible for the content of the report.
--- NOTE | 2022-01-18 14:29 | RAD REPORT ---
EXAM DESCRIPTION: CT - Abdomen Pelvis W Contrast - 01/18/2022 7:08 am CLINICAL HISTORY: 61 years Male abdominal pain TECHNIQUE: Axial CT imaging of the abdomen and pelvis was performed following the administration of intravenous contrast.. Oral contrast was not administered. Sagittal and coronal reconstructed image s were then performed. The CT study is performed according to ALARA (as low as reasonably achievabl e) or ALARA/IMAGE GENTLY, with automatic adjustment of mA and/or kV according to patient size. Performed on: 01/18/2022 at 4:59 AM. COMPARISON: Right upper quadrant ultrasound performed on 01/18/2022 at 4:16 AM FINDINGS: Lung bases: The lung bases are clear. There is minimal bibasilar atelectasis and/or fibros is. Liver: The liver is normal in size and configuration. There are multiple sharply marginated hypodense lesions scattered throughout the liver. The largest measures approximately 4.9 x 4.1 cm in cross-sec tional diameter and is located in the right hepatic lobe adjacent to the gallbladder fossa. This cali esponds to the abnormality noted on the previous ultrasound. There are additional subcentimeter hypod ense lesions scattered throughout the left and right hepatic lobes. These likely represent incidental hepatic cysts. There is a 1 cm focal area of decreased density in the right hepatic lobe which does demonstrate some internal enhancement. This could potentially represent a hemangioma (series 502, agustin ge 56 and series 501, image 17) Liver attenuation is otherwise within normal limits. The hepatic and portal veins are patent. Spleen: The spleen is normal is size, configuration and attenuation. Gallbladder and bile duct: The gallbladder is well distended and unremarkable. There is no biliary ductal dilatation. Pancreas: The pancreas is grossly normal in size and configuration. Adrenal Glands: The adrenal glands are normal in size and configuration. Kidneys: The kidneys are normal in size and configuration. There is no evidence of hydronephrosis. Th ere is no evidence of nephrolithiasis. There is an approximately 2.3 cm right renal cortical cyst. No imaging follow-up is recommended. Stomach: The stomach is grossly normal. There is no definite hiatal hernia. Bowel: The bowel gas pattern is non specific and non obstructive. There is scattered colonic divertic ulosis. Appendix: The appendix is normal. Free air: There is no evidence of free air. Free fluid: There is no evidence of free fluid. Vasculature: The aorta is normal in caliber and contour. The inferior vena cava is grossly unremarkab le. Lymphadenopathy: No pathologic lymphadenopathy is identified. Bladder: The bladder is well distended and smooth in contour. Reproductive: The prostate gland is grossly within normal limits. There are occasional chronic coarse calcifications within the prostate gland. Bones: No acute osseous abnormalities are identified. There is a generalized disc bulge at L4-L5 whic h appears to flatten the ventral surface of the dural sac. Soft tissues: No acute soft tissue abnormalities are identified. There is a small fat-containing vent ral umbilical hernia. IMPRESSION: 1. No evidence of acute intra-abdominal or intrapelvic pathology. 2. There are multiple sharply marginated hypodense lesions scattered throughout the liver. The larg est measures approximately 4.9 x 4.1 cm in cross-sectional diameter and is located in the right hepat ic lobe adjacent to the gallbladder fossa. This corresponds to the abnormality noted on the previous ultrasound. There are additional subcentimeter hypodense lesions scattered throughout the left and ri ght hepatic lobes. These likely represent incidental hepatic cysts. 3. There is a 1 cm focal area of decreased density in the right hepatic lobe which does demonstrate some internal enhancement. This could potentially represent a hemangioma. 4. Scattered colonic diverticulosis. 5. Small fat-containing ventral umbilical hernia. 6. Generalized disc bulge at L4-L5 which appears to flatten the ventral surface of the dural sac. Electronically signed by: Shaneka Villela DO 01/18/2022 5:33 AM CDT Due to temporary technical issues with the PACS/Fluency reporting system, reports are being signed by the in house radiologists without review as a courtesy to insure prompt reporting. The interpreting radiologist is fully responsible for the content of the report.
== END 2022-01-18 06:17 | disposition home or self-care (01) ==
LOC: ER 03:30
DX: K29.20 Alcoholic gastritis without bleeding (principal); I10 Essential (primary) hypertension; F17.210 Nicotine dependence, cigarettes, uncomplicated
CPT/HCPCS: 36415; 74177; 76705; 80053; 80320; 83690; 85025; 96374; 96375; 99284; J2405; Q9967

== ENCOUNTER 2022-07-16 23:53 | Emergency (ER) | payer BC ==
--- OUTSIDE RECORDS SUMMARY | 2022-07-16 23:57 | XMS REPORT | Continuity of Care Document ---
:1960 Author Organization [facility] t Address [address] [facility] [address] [place] [address] Care Team Providers Name Role Phone Trista Carmona Primary Care Physician [phone] Problems This patient has no known problems. Allergies, Adverse Reactions, Alerts This patient has no known allergies or adverse reactions. Medications Ordered Filled Start Stop Current Ordering Indication Dosage Frequency Signature Comments Components Source Medication Medication Date Date Medication? Clinician (SIG) Name Name rosuvastati 2021-0 No 1mg n 10 mg 5-23 tablet 00:00: 00 lisinopril 2021-0 No 1mg 20 5-23 mg-hydrochl 00:00: orothiazide 00 25 mg tablet amlodipine 2021-0 No 1mg 10 mg 5-23 tablet 00:00: 00 Dose 2-0 No Unknown 5-23 00:00: 00 rosuvastati 2020-1 No 1mg n 10 mg 1-16 tablet 00:00: 00 lisinopril 2020-1 No 1mg 20 1-01 mg-hydrochl 00:00: orothiazide 00 25 mg tablet amlodipine 2020-1 No 1mg 10 mg 1-01 tablet 00:00: 00 Cialis 10 1-0 No 1mg mg tablet 7-08 00:00: 00 benzonatate 1-0 No 1mg 100 mg 4-02 capsule 00:00: 00 Cialis 10 2020-0 No 1mg mg tablet 3-22 00:00: 00 lisinopril 2021-0 No 1mg 20 3-22 mg-hydrochl 00:00: orothiazide 00 25 mg tablet amlodipine 1-0 No 1mg 10 mg 3-22 tablet 00:00: 00 lisinopril 1-0 No 1mg 20 3-09 mg-hydrochl 00:00: orothiazide 00 25 mg tablet amlodipine 1-0 No 1mg 10 mg 3-09 tablet 00:00: 00 Cialis 10 2020-1 No 1mg mg tablet 2-14 00:00: 00 lisinopril 2020-1 No 1mg 20 2-14 mg-hydrochl 00:00: orothiazide 00 25 mg tablet amlodipine 2020-1 No 1mg 10 mg 2-14 tablet 00:00: 00 Cialis 10 2020-0 No 1mg mg tablet 9-21 00:00: 00 lisinopril 2020-0 No 1mg 20 9-21 mg-hydrochl 00:00: orothiazide 00 25 mg tablet Cialis 10 2020-0 No 1mg mg tablet 8- 00:00: 00 Cialis 5 mg 2020-0 No 1mg tablet 6- 00:00: 00 Cialis 5 mg 2020-0 No 1mg tablet 5- 00:00: 00 amlodipine 2020-0 No 1mg 5 mg tablet 4-27 00:00: 00 lisinopril 2020-0 No 1mg 20 4-27 mg-hydrochl 00:00: orothiazide 00 25 mg tablet Cialis 5 mg 2020-0 No 1mg tablet 4-27 00:00: 00 amlodipine 2020-0 No 2mg 5 mg tablet 4-27 00:00: 00 amlodipine 2020-0 No 2mg 5 mg tablet 4-27 00:00: 00 Cialis 5 mg 2020-0 No 1mg tablet 3-26 00:00: 00 Cialis 5 mg 2020-0 No 1mg tablet 2-06 00:00: 00 lisinopril 2020-0 No 1mg 20 1-02 mg-hydrochl 00:00: orothiazide 00 25 mg tablet Cialis 5 mg 2020-0 No 1mg tablet 1- 00:00: 00 amlodipine 2020-0 No 1mg 5 mg tablet 1- 00:00: 00 amlodipine 2020-0 No 1mg 5 mg tablet 1- 00:00: 00 amlodipine 2019-1 No 1mg 5 mg tablet 0- 00:00: 00 Cialis 5 mg 2019-1 No 1mg tablet 0- 00:00: 00 lisinopril 2019-1 No 1mg 20 mg 0-03 tablet 00:00: 00 lisinopril 2018-05 No 1mg 20 0-03 mg-hydrochl 00:00: orothiazide 00 25 mg tablet hydrochloro 2018-05 No 1mg thiazide 0-03 12.5 mg 00:00: capsule 00 Vital Signs Vital Name Observation Time Observation Value Comments Source BP Systolic 2022-01-19 10:32:00 162 mm[Hg] BP Diastolic 2022-01-19 10:32:00 100 mm[Hg] Weight Measured 2022-01-19 10:32:00 163.20 pounds Height Measured 2022-01-19 10:32:00 65.65 inches Body Temperature 2022-01-19 10:32:00 98.30 degrees Heart Rate 2022-01-19 10:32:00 64.00 /min Respiratory Rate 2022-01-19 10:32:00 20.00 /min BP Systolic 2021-03-20 14:09:00 146 mm[Hg] BP Diastolic 2021-03-20 14:09:00 83 mm[Hg] Weight Measured 2021-03-20 14:09:00 150.80 pounds Height Measured 2021-03-20 14:09:00 65.65 inches Body Temperature 2021-03-20 14:09:00 98.30 degrees Heart Rate 2021-03-20 14:09:00 74.00 /min Respiratory Rate 2021-03-20 14:09:00 BP Systolic 2020-08-08 16:53:00 126 mm[Hg] BP Diastolic 2020-08-08 16:53:00 82 mm[Hg] Weight Measured 2020-08-08 16:53:00 160.40 pounds Height Measured 2020-08-08 16:53:00 65.65 inches Body Temperature 2020-08-08 16:53:00 98.00 degrees Heart Rate 2020-08-08 16:53:00 73.00 /min Respiratory Rate 2020-08-08 16:53:00 16.00 /min BP Systolic 2020-05-02 16:23:00 163 mm[Hg] BP Diastolic 2020-05-02 16:23:00 99 mm[Hg] Weight Measured 2020-05-02 16:23:00 170.40 pounds Height Measured 2020-05-02 16:23:00 65.65 inches Body Temperature 2020-05-02 16:23:00 98.90 degrees Heart Rate 2020-05-02 16:23:00 71.00 /min Respiratory Rate 2020-05-02 16:23:00 16.00 /min BP Systolic 2019-12-21 16:43:00 147 mm[Hg] BP Diastolic 2019-12-21 16:43:00 74 mm[Hg] Weight Measured 2019-12-21 16:43:00 175.60 pounds Height Measured 2019-12-21 16:43:00 65.65 inches Body Temperature 2019-12-21 16:43:00 97.70 degrees Heart Rate 2019-12-21 16:43:00 73.00 /min Respiratory Rate 2019-12-21 16:43:00 16.00 /min Weight Measured 2019-10-08 15:27:00 170.80 pounds Height Measured 2019-10-08 15:27:00 65.65 inches Body Temperature 2019-10-08 15:27:00 97.80 degrees Heart Rate 2019-10-08 15:27:00 68.00 /min Respiratory Rate 2019-10-08 15:27:00 16.00 /min BP Systolic 2019-10-08 15:27:00 137 mm[Hg] BP Diastolic 2019-10-08 15:27:00 84 mm[Hg] BP Systolic 2019-08-13 11:22:00 159 mm[Hg] BP Diastolic 2019-08-13 11:22:00 101 mm[Hg] Weight Measured 2019-08-13 11:22:00 169.60 pounds Height Measured 2019-08-13 11:22:00 65.65 inches Body Temperature 2019-08-13 11:22:00 98.40 degrees Heart Rate 2019-08-13 11:22:00 72.00 /min Respiratory Rate 2019-08-13 11:22:00 16.00 /min BP Systolic 2019-06-25 16:26:00 128 mm[Hg] BP Diastolic 2019-06-25 16:26:00 84 mm[Hg] Weight Measured 2019-06-25 16:26:00 167.60 pounds Height Measured 2019-06-25 16:26:00 65.65 inches Body Temperature 2019-06-25 16:26:00 98.00 degrees Heart Rate 2019-06-25 16:26:00 86.00 /min Respiratory Rate 2019-06-25 16:26:00 15.00 /min BP Systolic 2019-05-21 16:06:00 121 mm[Hg] BP Diastolic 2019-05-21 16:06:00 80 mm[Hg] Weight Measured 2019-05-21 16:06:00 168.80 pounds Height Measured 2019-05-21 16:06:00 65.65 inches Body Temperature 2019-05-21 16:06:00 98.30 degrees Heart Rate 2019-05-21 16:06:00 74.00 /min Respiratory Rate 2019-05-21 16:06:00 16.00 /min BP Systolic 2019-03-17 11:26:00 138 mm[Hg] BP Diastolic 2019-03-17 11:26:00 93 mm[Hg] Weight Measured 2019-03-17 11:26:00 174.40 pounds Height Measured 2019-03-17 11:26:00 65.65 inches Body Temperature 2019-03-17 11:26:00 98.00 degrees Heart Rate 2019-03-17 11:26:00 72.00 /min Respiratory Rate 2019-03-17 11:26:00 16.00 /min Procedures This patient has no known procedures. Plan of Care Planned Activity Planned Date Details Comments Source Goal Plan of Care Note [code = 70003-0] Goal Plan of Care Note [code = 28234-0] Goal Plan of Care Note [code = 98679-8] Goal Plan of Care Note [code = 80687-5] Goal Plan of Care Note [code = 71907-8] Goal Plan of Care Note [code = 40741-2] Goal Plan of Care Note [code = 12972-6] Goal Plan of Care Note [code = 66078-7] Goal Plan of Care Note [code = 04514-3] Goal Plan of Care Note [code = 31682-3] Goal Plan of Care Note [code = 78530-2] Goal Plan of Care Note [code = 06058-4] Goal Plan of Care Note [code = 12218-2] Goal Plan of Care Note [code = 72657-3] Goal Plan of Care Note [code = 28488-5] Goal Plan of Care Note [code = 61452-5] Goal Plan of Care Note [code = 79055-8] Encounters Start End Encounter Admission Attending Care Care Encounter Source Date/Time Date/Time Type Type Clinicians Facility Department ID 2022-02-19 2022-02-19 Outpatient [facility]OL [facility] [id number] Jabari 13:22:11 13:22:11 1003 F Jed 2022-01-19 2022-01-19 Outpatient [id number] 00:00:00 00:00:00 Visit [id number] Results Test Description Test Time Test Comments Results Result Comments Source COMPREHENSIVE METABOLIC PANEL 2022-02-20 06:22:41 Test Item Value Reference Range Interpretation Comme nts GLUCOSE (test code = 2217) 109 MG/DL 70-99 H BUN (test code = 2208) 15 MG/DL 8-23 CREATININE (test code = 0.91 MG/DL 0.80-1.40 2213) eGFR (2020 CKD-EPI) (test 96 ML/MIN/1.73 >60 code = 07865) CALC BUN/CREAT (test code = 16 RATIO 6-28 2234) SODIUM (test code = 2231) 140 MEQ/L 133-146 POTASSIUM (test code = 2228) 4.1 MEQ/L 3.5-5.4 CHLORIDE (test code = 2215) 102 MEQ/L 95-107 CARBON DIOXIDE (test code = 26 MEQ/L 19-31 2205) CALCIUM (test code = 2209) 9.2 MG/DL 8.5-10.5 PROTEIN, TOTAL (test code = 7.3 G/DL 6.1-8.3 2228) ALBUMIN (test code = 2201) 4.5 G/DL 3.5-5.2 CALC GLOBULIN (test code = 2.8 G/DL 1.9-3.7 2239) CALC A/G RATIO (test code = 1.6 RATIO 1.0-2.6 2233) BILIRUBIN, TOTAL (test code 0.4 MG/DL See_Comment [Automated message] The = 2206) system which ge nerated this result transmit asif reference range: <=1.2. T he reference range was not u sed to interpret this result as normal/abnormal . ALKALINE PHOSPHATASE (test 96 U/L 40-123 code = 2204) AST (test code = 2218) 23 U/L 9-50 ALT (test code = 2219) 14 U/L 5-50 LIPID [id number] 06:22:41 Test Item Value Reference Range Interpretation Comments CHOLESTEROL (test 183 MG/DL <200 code = 2210) TRIGLYCERIDES (test 110 MG/DL <150 code = 2232) HDL CHOLESTEROL (test 61 MG/DL >39 code = 2220) CALC LDL CHOL (test 101 MG/DL <100 H NOTE: C ALCULATED LDL code = 2237) IS BASED ON KP-KWON METHOD WHICHINCLUDES ADJUSTABLE TRIGLYCERIDE:VL DL CHOLESTEROL RAT IO.THIS FACTOR VARIES B Y MEASURED TRIGLY CERIDE AND NON-HDLCHOL ESTEROL CONCENTRATIONS WITH INCREASED CALCU LATED LDL SEENIN HIGH ER TRIGLYCERIDE OR LOWER NON-HDL SPECIME NS. FOR MOREINFORMATION , SEE CLIENT ANNOUNCE MENT AT [email or web address] RISK RATIO LDL/HDL 1.66 RATIO <3.55 UNLESS O THERWISE (test code = 2238) INDICATED , ALL TESTING PERFORMED [facility], [facility]. [address] [place] [id number] [place] [address] DIRECTOR: REFUGIO BENTLEY M.D. CLIA NUMBER [id number] CAP ACCREDITATION N O. [id number] CBC W/AUTO DIFF WITH [id number] 03:20:38 Test Item Value Reference Range Interpretation Comments WBC (test code = 7.3 K/UL 3.5-11.0 1001) RBC (test code = 5.27 M/UL 4.50-6.10 1002) HEMOGLOBIN (test code 15.1 G/DL 13.5-17.0 = 1003) HEMATOCRIT (test code 45.8 % 40.0-51.0 = 1004) MCV (test code = 86.9 fL 80.0-99.0 1005) MCH (test code = 28.7 PG 25.0-33.0 1006) MCHC (test code = 33.0 G/DL 31.0-36.0 1007) RDW (test code = 13.0 % 11.5-15.0 1038) NEUTROPHILS (test 49.9 % code = 1008) LYMPHOCYTES (test 37.6 % code = 1010) MONOCYTES (test code 9.8 % = 1011) EOSINOPHILS (test 1.8 % code = 1012) BASOPHILS (test code 0.6 % = 1013) IMMATURE GRANULOCYTES 0.3 % (test code = 1036) NUCLEATED RBCS (test 0.0 /100 WBC'S See_Comment [Aut omated code = 1065) message] The sy stem which generated this result transmitted reference range : 0.0. The refere nce range was not u sed to interpret th is result as normal/abnormal . PLATELET COUNT (test 236 K/UL 130-400 code = 1015) ABSOLUTE NEUTROPHILS 3.64 K/UL 1.50-7.50 (test code = 1066) ABSOLUTE LYMPHOCYTES 2.73 K/UL 1.00-4.00 (test code = 1067) ABSOLUTE MONOCYTES 0.71 K/UL 0.20-1.00 (test code = 1068) ABSOLUTE EOSINOPHILS 0.13 K/UL 0.00-0.50 (test code = 1040) ABSOLUTE BASOPHILS 0.04 K/UL 0.00-0.20 (test code = 1069) ABS IMMATURE 0.02 K/UL 0.00-0.10 GRANULOCYTES (test code = 1020) ABS NUCLEATED RBCS 0.00 K/UL 0.00-0.11 (test code = 94156) LIPID [id number] 00:00:00 Test Item Value Reference Range Interpretation Comments CHOLESTEROL (test code = 2210) 184 MG/DL TRIGLYCERIDES (test code = 2232) 119 MG/DL HDL CHOLESTEROL (test code = 2220) 69 MG/DL CALC LDL CHOL (test code = 2237) 93 MG/DL RISK RATIO LDL/HDL (test code = 1.35 RATIO 2238) LIPID [id number] 00:00:00 Test Item Value Reference Range Interpretation Comments CHOLESTEROL (test code = 2210) 184 MG/DL TRIGLYCERIDES (test code = 2232) 119 MG/DL HDL CHOLESTEROL (test code = 2220) 69 MG/DL CALC LDL CHOL (test code = 2237) 93 MG/DL RISK RATIO LDL/HDL (test code = 1.35 RATIO 2238) COMPREHENSIVE METABOLIC [id number] 00:00:00 Test Item Value Reference Range Interpretation Comments GLUCOSE (test code = 2217) 109 MG/DL BUN (test code = 2208) 21 MG/DL CREATININE (test code = 2214) 0.89 MG/DL eGFR AMER. (test code 108 ML/MIN/1.73 = 01274) eGFR NON- AMER. (test 93 ML/MIN/1.73 code = 41094) CALC BUN/CREAT (test code = 24 RATIO 2235) SODIUM (test code = 2231) 144 MEQ/L POTASSIUM (test code = 2228) 3.9 MEQ/L CHLORIDE (test code = 2215) 105 MEQ/L CARBON DIOXIDE (test code = 24 MEQ/L 220) CALCIUM (test code = 2209) 9.0 MG/DL PROTEIN, TOTAL (test code = 7.3 G/DL 2228) ALBUMIN (test code = 2201) 4.4 G/DL CALC GLOBULIN (test code = 2.9 G/DL 2240) CALC A/G RATIO (test code = 1.5 RATIO 2234) BILIRUBIN, TOTAL (test code = 0.4 MG/DL 2206) ALKALINE PHOSPHATASE (test 97 U/L code = 2204) AST (test code = 2218) 23 U/L ALT (test code = 2219) 17 U/L COMPREHENSIVE METABOLIC [id number] 00:00:00 Test Item Value Reference Range Interpretation Comments GLUCOSE (test code = 2217) 109 MG/DL BUN (test code = 2208) 21 MG/DL CREATININE (test code = 2214) 0.89 MG/DL eGFR AMER. (test code 108 ML/MIN/1.73 = 37717) eGFR NON- AMER. (test 93 ML/MIN/1.73 code = 31353) CALC BUN/CREAT (test code = 24 RATIO 2235) SODIUM (test code = 2231) 144 MEQ/L POTASSIUM (test code = 2228) 3.9 MEQ/L CHLORIDE (test code = 2215) 105 MEQ/L CARBON DIOXIDE (test code = 24 MEQ/L 2206) CALCIUM (test code = 2209) 9.0 MG/DL PROTEIN, TOTAL (test code = 7.3 G/DL 2228) ALBUMIN (test code = 2201) 4.4 G/DL CALC GLOBULIN (test code = 2.9 G/DL 2240) CALC A/G RATIO (test code = 1.5 RATIO 2233) BILIRUBIN, TOTAL (test code = 0.4 MG/DL 2206) ALKALINE PHOSPHATASE (test 97 U/L code = 2204) AST (test code = 2218) 23 U/L ALT (test code = 2219) 17 U/L [id number] 00:00:00 Test Item Value Reference Range Interpretation Comments D-DIMER (test code = 1405) 0.32 UG/MLFEU [id number] 00:00:00 Test Item Value Reference Range Interpretation Comments D-DIMER (test code = 1405) 0.32 UG/MLFEU [id number] 00:00:00 Test Item Value Reference Range Interpretation Comments NT-proBNP (test code = 29479) 80 PG/ML [id number] 00:00:00 Test Item Value Reference Range Interpretation Comments NT-proBNP (test code = 59847) 80 PG/ML [id number] 00:00:00 Test Item Value Reference Range Interpretation Comments NT-proBNP (test code = 63592) 80 PG/ML COMPREHENSIVE METABOLIC [id number] 00:00:00 Test Item Value Reference Range Interpretation Comments GLUCOSE (test code = 2217) 101 MG/DL BUN (test code = 2208) 14 MG/DL CREATININE (test code = 2214) 0.96 MG/DL eGFR AMER. (test code 100 ML/MIN/1.73 = 11712) eGFR NON- AMER. (test 86 ML/MIN/1.73 code = 63062) CALC BUN/CREAT (test code = 15 RATIO 2234) SODIUM (test code = 2231) 140 MEQ/L POTASSIUM (test code = 2228) 3.9 MEQ/L CHLORIDE (test code = 2215) 100 MEQ/L CARBON DIOXIDE (test code = 28 MEQ/L 2205) CALCIUM (test code = 2209) 9.0 MG/DL PROTEIN, TOTAL (test code = 7.2 G/DL 2228) ALBUMIN (test code = 2201) 4.3 G/DL CALC GLOBULIN (test code = 2.9 G/DL 2239) CALC A/G RATIO (test code = 1.5 RATIO 2233) BILIRUBIN, TOTAL (test code = <0.2 MG/DL 2207) ALKALINE PHOSPHATASE (test 76 U/L code = 2204) AST (test code = 2218) 19 U/L ALT (test code = 2219) 15 U/L COMPREHENSIVE METABOLIC [id number] 00:00:00 Test Item Value Reference Range Interpretation Comments GLUCOSE (test code = 2217) 101 MG/DL BUN (test code = 2208) 14 MG/DL CREATININE (test code = 2214) 0.96 MG/DL eGFR AMER. (test code 100 ML/MIN/1.73 = 32552) eGFR NON- AMER. (test 86 ML/MIN/1.73 code = 40912) CALC BUN/CREAT (test code = 15 RATIO 2235) SODIUM (test code = 2231) 140 MEQ/L POTASSIUM (test code = 2228) 3.9 MEQ/L CHLORIDE (test code = 2215) 100 MEQ/L CARBON DIOXIDE (test code = 28 MEQ/L 220) CALCIUM (test code = 2209) 9.0 MG/DL PROTEIN, TOTAL (test code = 7.2 G/DL 2228) ALBUMIN (test code = 2201) 4.3 G/DL CALC GLOBULIN (test code = 2.9 G/DL 2240) CALC A/G RATIO (test code = 1.5 RATIO 2234) BILIRUBIN, TOTAL (test code = <0.2 MG/DL 2206) ALKALINE PHOSPHATASE (test 76 U/L code = 2204) AST (test code = 2218) 19 U/L ALT (test code = 2219) 15 U/L LIPID [id number] 00:00:00 Test Item Value Reference Range Interpretation Comments CHOLESTEROL (test code = 2210) 176 MG/DL TRIGLYCERIDES (test code = 2232) 283 MG/DL HDL CHOLESTEROL (test code = 2220) 42 MG/DL CALC LDL CHOL (test code = 2237) 94 MG/DL RISK RATIO LDL/HDL (test code = 2.24 RATIO 2238) LIPID [id number] 00:00:00 Test Item Value Reference Range Interpretation Comments CHOLESTEROL (test code = 2210) 176 MG/DL TRIGLYCERIDES (test code = 2232) 283 MG/DL HDL CHOLESTEROL (test code = 2220) 42 MG/DL CALC LDL CHOL (test code = 2237) 94 MG/DL RISK RATIO LDL/HDL (test code = 2.24 RATIO 2238) [id number] 00:00:00 Test Item Value Reference Range Interpretation Comments TESTOSTERONE (test code = 2830) 421 NG/DL [id number] 00:00:00 Test Item Value Reference Range Interpretation Comments TESTOSTERONE (test code = 2830) 421 NG/DL COMPREHENSIVE METABOLIC [id number] 00:00:00 Test Item Value Reference Range Interpretation Comments GLUCOSE (test code = 2217) 110 MG/DL BUN (test code = 2208) 13 MG/DL CREATININE (test code = 2214) 0.77 MG/DL eGFR AMER. (test code 116 ML/MIN/1.73 = 76363) eGFR NON- AMER. (test 100 ML/MIN/1.73 code = 52777) CALC BUN/CREAT (test code = 17 RATIO 2235) SODIUM (test code = 2231) 141 MEQ/L POTASSIUM (test code = 2228) 4.2 MEQ/L CHLORIDE (test code = 2215) 107 MEQ/L CARBON DIOXIDE (test code = 23 MEQ/L 2205) CALCIUM (test code = 2209) 9.1 MG/DL PROTEIN, TOTAL (test code = 7.6 G/DL 2228) ALBUMIN (test code = 2201) 4.4 G/DL CALC GLOBULIN (test code = 3.2 G/DL 2240) CALC A/G RATIO (test code = 1.4 RATIO 2234) BILIRUBIN, TOTAL (test code = 0.3 MG/DL 2206) ALKALINE PHOSPHATASE (test 73 U/L code = 2204) AST (test code = 2218) 27 U/L ALT (test code = 2219) 20 U/L COMPREHENSIVE METABOLIC [id number] 00:00:00 Test Item Value Reference Range Interpretation Comments GLUCOSE (test code = 2217) 110 MG/DL BUN (test code = 2208) 13 MG/DL CREATININE (test code = 2214) 0.77 MG/DL eGFR AMER. (test code 116 ML/MIN/1.73 = 69220) eGFR NON- AMER. (test 100 ML/MIN/1.73 code = 12005) CALC BUN/CREAT (test code = 17 RATIO 2235) SODIUM (test code = 2231) 141 MEQ/L POTASSIUM (test code = 2228) 4.2 MEQ/L CHLORIDE (test code = 2215) 107 MEQ/L CARBON DIOXIDE (test code = 23 MEQ/L 2205) CALCIUM (test code = 2209) 9.1 MG/DL PROTEIN, TOTAL (test code = 7.6 G/DL 2228) ALBUMIN (test code = 2201) 4.4 G/DL CALC GLOBULIN (test code = 3.2 G/DL 2239) CALC A/G RATIO (test code = 1.4 RATIO 2233) BILIRUBIN, TOTAL (test code = 0.3 MG/DL 2206) ALKALINE PHOSPHATASE (test 73 U/L code = 2204) AST (test code = 2218) 27 U/L ALT (test code = 2219) 20 U/L LIPID [id number] 00:00:00 Test Item Value Reference Range Interpretation Comments CHOLESTEROL (test code = 2210) 209 MG/DL TRIGLYCERIDES (test code = 2232) 120 MG/DL HDL CHOLESTEROL (test code = 2220) 47 MG/DL CALC LDL CHOL (test code = 2237) 138 MG/DL RISK RATIO LDL/HDL (test code = 2.94 RATIO 2238) LIPID [id number] 00:00:00 Test Item Value Reference Range Interpretation Comments CHOLESTEROL (test code = 2210) 209 MG/DL TRIGLYCERIDES (test code = 2232) 120 MG/DL HDL CHOLESTEROL (test code = 2220) 47 MG/DL CALC LDL CHOL (test code = 2237) 138 MG/DL RISK RATIO LDL/HDL (test code = 2.94 RATIO 2238) HEMOGLOBIN [id number] 00:00:00 Test Item Value Reference Range Interpretation Comments HEMOGLOBIN A1c (test code = 53872) 5.9 % HEMOGLOBIN [id number] 00:00:00 Test Item Value Reference Range Interpretation Comments HEMOGLOBIN A1c (test code = 40772) 5.9 % HEMOGLOBIN [id number] 00:00:00 Test Item Value Reference Range Interpretation Comments HEMOGLOBIN A1c (test code = 31825) 5.9 %
[2022-07-17] MEDS ORDERED: LIDOCAINE 1% W/EPI 1:100,000 50 ML MDV ONE (01:09)
--- NOTE | 2022-07-17 01:34 | EDPHYS ---
Physician Documentation [facility] Name: Demetris Wong Age: 62 yrs Sex: Male : 1960 Arrival Date: 07/16/2022 Time: 23:57 Bed 18 Private MD: ED Physician Jim Swenson HPI: 07/17 00:10 This 62 yrs old Male presents to ER via Ambulatory with complaints of cp Laceration To Arm. 00:10 The patient has a laceration occurred at work, using razor. The laceration(s) is(are) cp located on the palmar aspect of left forearm. Onset: The symptoms/episode began/occurred just prior to arrival. Associated signs and symptoms: The patient has no apparent associated signs or symptoms. Historical: - Allergies: 00:05 No Known Allergies; aa9 - Home Meds: 00:05 lisinopril 20 mg Oral tab 1 tab once daily [Active]; aa9 - PMHx: 00:05 Hypertension; aa9 - PSHx: 00:05 left shoulder; aa9 - Immunization history:: Client reports having NOT received the Covid vaccine. Last tetanus immunization: < 5 years ago. - Social history:: Smoking status: Patient denies any tobacco usage or history of. ROS: 00:15 Skin: Positive for laceration(s), of the palmar aspect of left forearm. cp 00:15 Constitutional: Negative for fever, poor PO intake. cp 00:15 Respiratory: Negative for cough, shortness of breath, wheezing. 00:15 Abdomen/GI: Negative for abdominal pain, nausea, vomiting, and diarrhea. 00:15 All other systems are negative. Exam: 00:20 Constitutional: The patient appears in no acute distress, alert, awake, non-toxic, well cp developed, well nourished. 00:20 Head/Face: Normocephalic, atraumatic. cp 00:20 Skin: injury, laceration(s), the wound is approximately 2.5 cm(s), of the palmar aspect of left forearm, that can be described as clean, no foreign body, linear, with mild bleeding. 00:20 Neuro: Motor: full AROM left hand, Sensation: is normal. Vital Signs: 00:03 BP 147 / 91; Pulse 81; Resp 17 S; Temp 98.3(O); Pulse Ox 94% on R/A; Weight 88.45 kg aa9 (R); Height 5 ft. 7 in. (170.18 cm) (R); Pain 6/10; 00:03 Body Mass Index 30.54 (88.45 kg, 170.18 cm) aa9 Laceration: 01:30 Wound Repair of 2.5cm ( 1.0in ) subcutaneous laceration to volar side left forearm. cp Linear shaped.. Distal neuro/vascular/tendon intact. Anesthesia: Wound infiltrated with 5 mls of 1% lidocaine w/ Epi. Wound prep: Moderate cleansing by me, Wound irrigation by me. Skin closed with 3 4-0 Prolene using interrupted sutures and sterile technique. Dressed with Bacitracin, 4x4's. Patient tolerated well. MDM: 07/16 23:58 Patient medically screened. 07/17 01:00 Differential diagnosis: superficial laceration, tendon injury, vascular injury. 01:33 Data reviewed: vital signs, nurses notes. 01:33 I considered the following discharge prescriptions or medication management in the emergency department Medications were administered in the Emergency Department. See MAR. Test considered but Not performed: X-ray: left forearm. Care significantly affected by the following chronic conditions: Hypertension. Counseling: I had a detailed discussion with the patient and/or guardian regarding: the historical points, exam findings, and any diagnostic results supporting the discharge/admit diagnosis, the need for outpatient follow up, a family practitioner, to return to the emergency department if symptoms worsen or persist or if there are any questions or concerns that arise at home. Response to treatment: the patient's symptoms have markedly improved after treatment, and as a result, I will discharge patient. 07/17 00:17 Order name: Dressing - Wound; Complete Time: 02:00 cp 07/17 00:17 Order name: Gloves, Sterile; Complete Time: 02: cp 07/17 00:17 Order name: Setup Suture Tray; Complete Time: 02: cp 07/17 00:17 Order name: Wound Care; Complete Time: 02:00 Administered Medications: 01:45 Drug: Lidocaine-Epinephrine -1%: (1:100,000) 5 ml {Note: Administered by ER provider.} jb4 Volume: 20 ml; Route: Infiltration; 01:57 Not Given (Patient Refused): Tetanus-Diphtheria Toxoid Adult 0.5 ml IM once; Provide jb4 Vaccine Information Statement (VIS). 02:00 Drug: HYDROcodone-acetaminophen 5 mg-325 mg 1 tabs Route: PO; jb4 02:00 Drug: Ibuprofen 800 mg Route: PO; jb4 Disposition Summary: 07/17/22 01:33 Discharge Ordered Location: Home cp Problem: new cp Symptoms: have improved cp Condition: Stable cp Diagnosis - Laceration without foreign body of left forearm cp Followup: cp - With: Private Physician - When: 7 - 10 days - Reason: Staple/Suture removal Discharge Instructions: - Discharge Summary Sheet cp - Laceration Care, Adult cp Forms: - Medication Reconciliation Form cp - Thank You Letter cp - Antibiotic Education cp - Prescription Opioid Use cp Prescriptions: - Cephalexin 500 mg Oral Capsule - take 1 capsule by ORAL route every 8 hours for 7 days; 21 capsule; Refills: 0, cp Product Selection Permitted - Ibuprofen 800 mg Oral Tablet - take 1 tablet by ORAL route every 8 hours As needed take with food; 30 tablet; cp Refills: 0, Product Selection Permitted Signatures: Landry Sotomayor PA PA cp King Madden, RN RN jb4 Ranjana Acevedo RN RN aa9
--- NOTE | 2022-07-17 01:34 | ER ---
Nurse's Notes [facility] Name: Demetris Wong Age: 62 yrs Sex: Male : 1960 Arrival Date: 07/16/2022 Time: 23:57 Bed 18 Private MD: Diagnosis: Laceration without foreign body of left forearm Presentation: 07/17 00:03 Chief complaint: Patient states: I was cutting tile about 30 min ago and I cut my arm, aa9 It was bleeding pretty bad for a bit then it stopped. Coronavirus screen: Vaccine status: Patient reports being unvaccinated. Ebola Screen: No symptoms or risks identified at this time. Complicating Factors: There are no complicating factors for this patient. Initial Sepsis Screen: Does the patient meet any 2 criteria? No. Patient's initial sepsis screen is negative. Does the patient have a suspected source of infection? No. Patient's initial sepsis screen is negative. Risk Assessment: Do you want to hurt yourself or someone else? Patient reports desire/thoughts of hurting themselves or someone else. Provider notified. Onset of symptoms was July 17, 2022. 00:03 Method Of Arrival: Ambulatory aa9 00:03 Acuity: GISEL 4 aa9 Triage Assessment: 00:05 General: Appears uncomfortable, unkempt, Behavior is cooperative, anxious. Pain: aa9 Complains of pain in palmar aspect of left forearm Pain currently is 6 out of 10 on a pain scale. Derm: Wound noted palmar aspect of left forearm Wound is approximately 1.5 inch in length linear laceration to the left forearm. Historical: - Allergies: 00:05 No Known Allergies; aa9 - Home Meds: 00:05 lisinopril 20 mg Oral tab 1 tab once daily [Active]; aa9 - PMHx: 00:05 Hypertension; aa9 - PSHx: 00:05 left shoulder; aa9 - Immunization history:: Client reports having NOT received the Covid vaccine. Last tetanus immunization: < 5 years ago. - Social history:: Smoking status: Patient denies any tobacco usage or history of. Screenin:03 [facility] ED Fall Risk Assessment (Adult) History of falling in the last 3 months, jb4 including since admission No falls in past 3 months (0 pts) Confusion or Disorientation No (0 pts) Score/Fall Risk Level 0 - 2 = Low Risk Oriented to surroundings, Maintained a safe environment. Abuse screen: Denies threats or abuse. Nutritional screening: No deficits noted. Tuberculosis screening: No symptoms or risk factors identified. Assessment: 00:11 General: Appears in no apparent distress. comfortable, Behavior is calm, cooperative, jb4 appropriate for age. Pain: Complains of pain in dorsal aspect of left forearm Pain does not radiate. Pain currently is 6 out of 10 on a pain scale. Neuro: Level of Consciousness is awake, alert, obeys commands, Oriented to person, place, time, situation. Cardiovascular: Patient's skin is warm and dry. Respiratory: Airway is patent Respiratory effort is even, unlabored, Respiratory pattern is regular, symmetrical. GI: No signs and/or symptoms were reported involving the gastrointestinal system. : No signs and/or symptoms were reported regarding the genitourinary system. EENT: No signs and/or symptoms were reported regarding the EENT system. Derm: Skin is pink, warm \T\ dry. Musculoskeletal: Circulation, motion, and sensation intact. Range of motion: intact in all extremities. 00:13 Injury Description: Laceration sustained to dorsal aspect of left forearm is clean, jb4 superficial, 0.5 to 2.5 cm long. 02:03 Reassessment: Patient appears in no apparent distress at this time. Patient and/or jb4 family updated on plan of care and expected duration. Pain level reassessed. Patient is alert, oriented x 3, equal unlabored respirations, skin warm/dry/pink. Vital Signs: 00:03 BP 147 / 91; Pulse 81; Resp 17 S; Temp 98.3(O); Pulse Ox 94% on R/A; Weight 88.45 kg aa9 (R); Height 5 ft. 7 in. (170.18 cm) (R); Pain 6/10; 00:03 Body Mass Index 30.54 (88.45 kg, 170.18 cm) aa9 ED Course: 07/16 23:57 Patient arrived in ED. jj6 23:58 Landry Sotomayor PA is PHCP. cp 23:58 Jim Swenson MD is Attending Physician. cp 07/17 00:05 Triage completed. aa9 00:07 Arm band placed on Patient placed on a stretcher. aa9 00:10 King Madden, RN is Primary Nurse. jb4 02:03 Patient has correct armband on for positive identification. Bed in low position. Call jb4 light in reach. Side rails up X 1. 02:03 No provider procedures requiring assistance completed. Patient did not have IV access jb4 during this emergency room visit. Administered Medications: 01:45 Drug: Lidocaine-Epinephrine -1%: (1:100,000) 5 ml {Note: Administered by ER provider.} jb4 Volume: 20 ml; Route: Infiltration; 01:57 Not Given (Patient Refused): Tetanus-Diphtheria Toxoid Adult 0.5 ml IM once; Provide jb4 Vaccine Information Statement (VIS). 02:00 Drug: HYDROcodone-acetaminophen 5 mg-325 mg 1 tabs Route: PO; jb4 02:00 Drug: Ibuprofen 800 mg Route: PO; jb4 Medication: 02:03 VIS not applicable for this client. jb4 Outcome: 01:33 Discharge ordered by . siomara 02:03 Discharged to home ambulatory. jb4 02:03 Condition: stable 02:03 Discharge instructions given to patient, Instructed on discharge instructions, follow up and referral plans. medication usage, Demonstrated understanding of instructions, follow-up care, medications, Prescriptions given X 2. 02:04 Patient left the ED. jb4 Signatures: Landry Sotomayor PA PA cp King Madden, RN RN jb4 Marilin Reveles jj6 Ranjana Acevedo RN RN aa9 Corrections: (The following items were deleted from the chart) 00:10 00:05 Derm: Wound noted palmar aspect of left forearm Wound is 2 in length linear aa9 laceration to the left forearm aa9 00:13 00:11 Derm: Skin is intact, Skin is pink, warm \T\ dry. jb4 jb4
[2022-07-17] MEDS ORDERED: IBUPROFEN 400 MG TAB ONE (02:03)
[2022-07-17] MEDS ORDERED: HYDROCODONE/APAP 5/325 MG TAB ONE (02:04)
[2022-07-17 02:07] VITALS: BP 147/91; TEMP 98.3; O2SAT 94
== END 2022-07-17 02:04 | disposition home or self-care (01) ==
LOC: ER 23:53
PROC: 0HQEXZZ Repair Left Lower Arm Skin, External Approach (ICD-10-PCS; principal; 2022-07-17)
DX: S51.812A Laceration without foreign body of left forearm, initial encounter (principal); I10 Essential (primary) hypertension
CPT/HCPCS: 99283